=== PATIENT | female | born 1975 | race Caucasian/White ===

== ENCOUNTER 2018-05-14 07:00 | Day surgery (SDC) | payer BC ==
[~2018-05-14] VITALS: Ht 154.9 cm; Wt 79.4 kg
--- NOTE | ~2018-05-14 | OR ---
[facility] [address], [place] [address] Draft DATE OF OPERATION: 05/14/2018 SURGEON: Aaron Limon MD PREOPERATIVE DIAGNOSIS: Rotator cuff tear, right shoulder with impingement. POSTOPERATIVE DIAGNOSIS: Partial thickness rotator cuff tear, right shoulder with impingement and AC joint arthritis. PROCEDURE PERFORMED: Right shoulder arthroscopy with subacromial decompression, debridement of a partial-thickness rotator cuff tear, and arthroscopic Enrique procedure. ANESTHESIA: General. SPECIMENS AND COMPLICATIONS: There were no specimens or complications. BLOOD LOSS: Minimal. WHAT WAS DONE: The patient was taken to the operating room. After anesthesia was induced and airway secured, the patient was positioned, prepped and draped in a routine sterile fashion. The bony topography was outlined with a skin marking pen and the arthroscope was inserted through the standard posterior portal. Diagnostic arthroscopy of the shoulder joint revealed a pretty unremarkable glenoid, pretty unremarkable labrum, pretty unremarkable humeral head. Biceps tendon and biceps anchor were unremarkable. There was quite a bit of fraying on the articular side of the supraspinatus. We therefore created an anterior portal using a switching stick technique and introduced the VAPR. We debrided the rotator cuff in the area of the supraspinatus and we were unable to discover any areas of full-thickness tearing. We therefore drained the shoulder joint, repositioned the arthroscope into the subacromial space and made an axillary lateral portal, through which the VAPR was introduced. A subacromial bursectomy was accomplished and this gave us excellent visualization of the bursal side of the rotator cuff and again we could not see any full-thickness tears. We therefore used the VAPR to remove the soft tissue of the undersurface of the acromion, which had along anterior PATIENT NAME: RIVER KELLER OPERATIVE REPORT DATE OF : 77 REPORT #: [id number] PHYSICIAN: AARON LIMON MD PCP: CALOS CAO DO REPORT IS CONFIDENTIAL AND NOT TO BE RELEASED WITHOUT AUTHORIZATION [facility] [address], [place] [address] Draft hook in the front. We introduced a 4 mm barrel bur and did a generous subacromial decompression. We then proceeded medially and co-plane the undersurface of the distal clavicle with the level of the subacromial resection. We then redirected the anterior portal into the AC joint and again used the bur to remove about 9 mm of the distal clavicle. This appeared to give us a complete decompression of the supraspinatus and again no defect could be seen on the articular side. The subacromial space was irrigated and drained. The portals were closed and sterile dressings applied. She was placed in a sling, awakened, and taken to the recovery room where she arrived in stable condition. Counts were correct and antibiotic protocols were followed. MD STAN Cornejo/MODL /[id number] Copies: ~ PATIENT NAME: RIVER KELLER OPERATIVE REPORT DATE OF : 77 REPORT #: [id number] PHYSICIAN: AARON LIMON MD PCP: CALOS CAO DO REPORT IS CONFIDENTIAL AND NOT TO BE RELEASED WITHOUT AUTHORIZATION
[~2018-05-14 07:00] MED LIST: CYMBALTA60 MG PO; FARXIGA10 MG PO; GLUCOPHAGE1000 MG PO; LOSARTAN POTASS25 MG PO; PRILOSEC OTC20 MG PO; TENORMIN50 MG PO; VITAMIN D50000 UNI1 PO
--- NOTE | 2018-05-14 12:25 | NUR ---
05/14/18 1225 Kassandra Carnes 1218 PATIENT ARRIVES TO PACU AWAKE, BUT DROWSY. C/O RIGHT SHOULDER PAIN, STATES SHE FEELS LIKE NUMBING MEDS AREN'T WORKING. RESP EVEN AND UNLABORED, MASK AT 6 LITERS. 1224 JANETTE CAREER SERVICES DIRECTOR WITH US AT BEDSIDE TO REDO BLOCK.
--- NOTE | 2018-05-14 13:21 | NUR ---
HOB ELEVATED. PATIENT COUGHS AND REPORTS "THAT FEELS BETTER". JELLO, SODA AND WATER GIVEN. SPOUSE @ BS. CALL LIGHT W/IN REACH.
--- NOTE | 2018-05-14 13:30 | NUR ---
IN TO CHECK ON PT, PT AWAKE WATCHING TV. PT TOLERATED JELLO AND WATER WELL.NO FURTHER NEEDS AT THIS TIME. CALL LIGHT IN REACH.
--- NOTE | 2018-05-14 14:31 | NUR ---
PT SITTING UP IN BED, AT . SHE IS ALERT, ORIENTED AND LOOKING FORWARD TO GETTING SURGERY OVER. FEW QUESTIONS, THANKED ME FOR COMING IN. I EXTENDED A BLESSING, WILL FOLLOW NEEDED
--- NOTE | 2018-05-14 14:46 | NUR ---
LE 1400 IN TO CHECK ON PT, PT DOING WELL. PT ASSISTED UP TO BATHROOM, TOLERATED WELL. PT RATES PAIN 3/10. PT DENIES NAUSEA. PT STATES SHE IS READY TO GO HOME. IV DC'D. PT DRESSED WITH ASSIST FROM . PT WHEELED OUT TO WAITING CAR.
== END 2018-05-14 14:15 | disposition home or self-care (01) ==
LOC: OPS 07:00 → DS 07:00 → OPS 09:00
PROVIDERS: Orthopaedic Surgery
PROC: 0PB94ZZ Excision of Right Clavicle, Percutaneous Endoscopic Approach (ICD-10-PCS; 2018-05-14)
PROC: 0RNJ4ZZ Release Right Shoulder Joint, Percutaneous Endoscopic Approach (ICD-10-PCS; principal; 2018-05-14 09:00)
DX: M75.101 Unspecified rotator cuff tear or rupture of right shoulder, not specified as traumatic (principal); M75.41 Impingement syndrome of right shoulder; M19.011 Primary osteoarthritis, right shoulder; E11.9 Type 2 diabetes mellitus without complications; K21.9 Gastro-esophageal reflux disease without esophagitis; I10 Essential (primary) hypertension; F32.9 Major depressive disorder, single episode, unspecified; Z88.5 Allergy status to narcotic agent; Z91.041 Radiographic dye allergy status; Z79.899 Other long term (current) drug therapy; Z79.84 Long term (current) use of oral hypoglycemic drugs; Z87.891 Personal history of nicotine dependence
CPT/HCPCS: 01630; 64415; 76942; J0131; J0330; J0690; J1100; J1885; J2250; J2405; J2704; J2765; J3010; J7120

== ENCOUNTER 2019-03-16 20:51 | Observation (INO) | payer BC ==
[~2019-03-16] VITALS: Ht 154.9 cm; Wt 78.7 kg
--- NOTE | ~2019-03-16 | EKG ---
[facility] [address] [place], [place] [address] Draft EK completed, results pending confirmation PATIENT NAME: MILI KELLERBONIFACIO ALCANTARE Electrocardiogram DATE OF : 77 PHYSICIAN: PRELIMINARY REPORT #: [id number] REPORT IS CONFIDENTIAL AND NOT TO BE RELEASED WITHOUT AUTHORIZATION
--- OUTSIDE RECORDS SUMMARY | ~2019-03-16 | XMS | Encounter Summary ---
Demographics + + + | Address | [address] | | | [place] [address] | + + + | Home Phone | | + + + | Preferred Language | Unknown | + + + | Marital Status | | + + + | Judaism Affiliation | Unknown | + + + | Race | Unknown | + + + | Ethnic Group | Unknown | + + + Author + + + | Author | [facility] | | | and [place] | + + + | Organization | [facility] | | | and [place] | + + + | Address | Unknown | + + + | Phone | Unavailable | + + + Support + + +---------+ + | Name | Relationship | Address | Phone | + + +---------+ + | Specner Reed | ECON | Unknown | | + + +---------+ + Care Team Providers + +------+ + | Care Body Masker Name | Role | Phone | + +------+ + | Misha Atkinson DO | PCP | | + +------+ + Reason for Visit + + + | Reason | Comments | + + + | Medication Refill | | + + + Encounter Details +--------+--------+ + + + | Date | Type | Department | Care Team | Description | +--------+--------+ + + + | 08/19/ | Refill | [facility] | Misha Atkinson | Medication Refill | | 2019 | | [facility] | E, DO [address] | | | | | [facility] [address] | [place], [place] | | | | | [address] [place], | [address] | | | | | [place] [address] | [phone] | | | | | [phone] | | | +--------+--------+ + + + Social History + + + +--------+------+ | Tobacco Use | Types | Packs/Day | Years | Date | | | | | Used | | + + + +--------+------+ | Current Every Day | Cigarettes | 1 | | | | Smoker | | | | | + + + +--------+------+ + +---+---+---+ | Smokeless Tobacco: | | | | | Never Used | | | | + +---+---+---+ + + +---------+ + | Alcohol Use | Drinks/Week | oz/Week | Comments | + + +---------+ + | Yes | 12 Cans of beer | 12.0 | | + + +---------+ + + + + | Sex Assigned at | Date Recorded | | | | + + + | Not on file | | + + + + + + + | Job Start Date | Occupation | Industry | + + + + | Not on file | Not on file | Not on file | + + + + + + + + | Travel History | Travel Start | Travel End | + + + + + + | No recent travel history available. | + + documented as of this encounter Plan of Treatment Not on filedocumented as of this encounter Visit Diagnoses Not on filedocumented in this encounter"
--- OUTSIDE RECORDS SUMMARY | ~2019-03-16 | XMS | Encounter Summary ---
Demographics + + + | Address | [address] | | | [place] [address] | + + + | Home Phone | | + + + | Preferred Language | Unknown | + + + | Marital Status | | + + + | Worship Affiliation | Unknown | + + + | Race | Unknown | + + + | Ethnic Group | Unknown | + + + Author + + + | Author | [facility] | | | and [place] | + + + | Organization | [facility] | | | and [place] | + + + | Address | Unknown | + + + | Phone | Unavailable | + + + Support + + +---------+ + | Name | Relationship | Address | Phone | + + +---------+ + | Spencer Reed | ECON | Unknown | | + + +---------+ + Care Team Providers + +------+ + | Care Underground Distribution Engineer Name | Role | Phone | + +------+ + | Misha Atkinson DO | PCP | | + +------+ + Encounter Details +--------+ + + + + | Date | Type | Department | Care Team | Description | +--------+ + + + + | 02/27/ | Orders Only | [facility] | Misha Atkinson | Type 2 diabetes | | 2019 | | [facility] | E, DO [address] | mellitus without | | | | [facility] [address] | [place] | complication, | | | | [address] [place], | [address] | without long-term | | | | [place] [address] | [phone] | current use of | | | | [phone] | | insulin (HCC) | | | | | | (Primary Dx) | +--------+ + + + + Social History + + [...] as of this encounter Plan of Treatment + +------+--------+ + + | Name | Type | Priori | Associated Diagnoses | Order Schedule | | | | ty | | | + +------+--------+ + + | Hemoglobin A1C | Lab | Routin | Type 2 diabetes | 1 Occurrences | | | | e | mellitus without | starting 02/27/2019 | | | | | complication, | until 02/28/2020 | | | | | without long-term | | | | | | current use of | | | | | | insulin (HCC) | | + +------+--------+ + + | Lipid Panel | Lab | Routin | Type 2 diabetes | 1 Occurrences | | | | e | mellitus without | starting 02/27/2019 | | | | | complication, | until 02/28/2020 | | | | | without long-term | | | | | | current use of | | | | | | insulin (HCC) | | + +------+--------+ + + | Comprehensive | Lab | Routin | Type 2 diabetes | 1 Occurrences | | Metabolic Panel | | e | mellitus without | starting 02/27/2019 | | | | | complication, | until 02/28/2020 | | | | | without long-term | | | | | | current use of | | | | | | insulin (HCC) | | + +------+--------+ + + | Microalbumin/Creatin | Lab | Routin | Type 2 diabetes | 1 Occurrences | | ine Ratio, Urine | | e | mellitus without | starting 02/27/2019 | | | | | complication, | until 02/28/2020 | | | | | without long-term | | | | | | current use of | | | | | | insulin (HCC) | | + +------+--------+ + + documented as of this encounter Visit Diagnoses + + | Diagnosis | + + | Type 2 diabetes mellitus without complication, without long-term current use of | | insulin (HCC) - Primary | + + documented in this encounter"
--- OUTSIDE RECORDS SUMMARY | ~2019-03-16 | XMS | Encounter Summary ---
Demographics + + + | Address | [address] | | | [place] [address] | + + + | Home Phone | | + + + | Preferred Language | Unknown | + + + | Marital Status | | + + + | Restoration Affiliation | Unknown | + + + | Race | Unknown | + + + | Ethnic Group | Unknown | + + + Author + + + | Author | [facility] | | | and [place] | + + + | Organization | [facility] | | | and [place] [...] Team Providers + +------+ + | Care Meat Cutting Block Repairer Name | Role | Phone | + +------+ + | Misha Atkinson DO | PCP | | + +------+ + Reason for Visit + + + | Reason | Comments | + + + | Establish Care | Re-establish care, go over labs and discuss rash on bilateral | | | elbows and wrists | + + + Encounter Details +--------+---------+ + + + | Date | Type | Department | Care Team | Description | +--------+---------+ + + + | 04/11/ | Office | [facility] | Misha Atkinson | Uncomplicated | | 2019 | Visit | [facility] | E, DO [address] | alcohol dependence | | | | MED[facility] [address] | [place], [place] | (HCC) (Primary Dx); | | | | [address] [place], | [address] | Controlled type 2 | | | | [place] [address] | [phone] | diabetes mellitus | | | | [phone] | | with complication, | | | | | | without long-term | | | | | | current use of | | | | | | insulin (HCC); | | | | | | Essential | | | | | | hypertension; | | | | | | Vitamin D | | | | | | deficiency; | | | | | | Cigarette nicotine | | | | | | dependence without | | | | | | complication; | | | | | | Dermatitis; Need for | | | | | | Tdap vaccination; | | | | | | Breast cancer | | | | | | screening; | | | | | | Leukocytosis, | | | | | | unspecified type | +--------+---------+ + + + Social History + + [...] | | | + +---+---+---+ + + | Tobacco Cessation: Ready to Quit: Yes; Counseling Given: Yes | + + + + +---------+ + | Alcohol Use [...] + + documented as of this encounter Last Filed Vital Signs + + + + + | Vital Sign | Reading | Time Taken | Comments | + + + + + | Blood Pressure | 178/102 | 04/11/2018 3:31 PM | | | | | PST | | + + + + + | Pulse | 100 | 04/11/2018 3:31 PM | | | | | PST | | + + + + + | Temperature | 36.8 C (98.2 F) | 04/11/2018 3:31 PM | | | | | PST | | + + + + + | Respiratory Rate | 19 | 04/11/2018 3:31 PM | | | | | PST | | + + + + + | Oxygen Saturation | 98% | 04/11/2018 3:31 PM | | | | | PST | | + + + + + | Inhaled Oxygen | - | - | | | Concentration | | | | + + + + + | Weight | 78.7 kg (173 lb 9.6 | 04/11/2018 3:31 PM | | | | oz) | PST | | + + + + + | Height | 155.7 cm (5' 1.3") | 04/11/2018 3:31 PM | | | | | PST | | + + + + + | Body Mass Index | 32.48 | 04/11/2018 3:31 PM | | | | | PST | | + + + + + documented in this encounter Patient Instructions Patient Instructions Susan Khan - 04/11/2018 3:30 PM PST-Continue to cut Carbohydrates -Goal for A1C is 6.0 -Take Vitamin D3 2000 I/U daily along with -Take Ergocalciferol 60199 Units daily -Start Losartan 50 mg daily -Take Fish Oil 2000 mg daily -Order for Mammogram, call [facility] to schedule appointment -Schedule appointment with GERIATRICIAN for PAP -Repeat Blood work in June 2018 - CBC -Apply Hydrocortisone cream to elbows, do not itch, use ice packs for relief of itchElectro nically signed by Susan Khan at 04/11/2018 4:23 PM PST documented in this encounter Progress Notes Misha Atkinson DO - 04/11/2018 3:30 PM PST Patient ID: Chhaya Reed is a 43 y.o. year old female Chief Complaint: Chief Complaint Patient presents with Establish Care Re-establish care, go over labs and discuss rash on bilateral elbows and wrists Assessment Uncomplicated alcohol dependence (HCC) (Primary) Controlled type 2 diabetes mellitus with complication, without long-term current use of ins ulin (HCC) - MetFORMIN HCl; Take 1 tablet by mouth 2 times daily (with breakfast & dinner). Dispe nse: 60 tablet; Refill: 1 Essential hypertension - Losartan Potassium; Take 1 tablet by mouth Daily. Dispense: 30 tablet; Refill: 1 - Atenolol; Take 1 tablet by mouth Daily. Dispense: 30 tablet; Refill: 1 Vitamin D deficiency - Ergocalciferol; Take 1 capsule by mouth every 14 days. Dispense: 8 capsule; Refill: 0 Cigarette nicotine dependence without complication Dermatitis Need for Tdap vaccination - Tdap vaccine greater than or equal to 7yo IM Breast cancer screening - ALEN Tomosynthesis Screening Bilateral; Future; Expected date: 04/11/2018 Leukocytosis, unspecified type - CBC with Differential; Future; Expected date: 04/11/2018 Other orders - DULoxetine HCl; Take 1 capsule by mouth Daily. Dispense: 30 capsule; Refill: 1 - Dapagliflozin Propanediol; Take 1 tablet by mouth every morning. Dispense: 30 tablet ; Refill: 1 Plan -Continue to cut Carbohydrates -Goal for A1C is 6.0 -Take Vitamin D3 2000 I/U daily along with -Take Ergocalciferol 20519 Units daily -Start Losartan 50 mg daily -Take Fish Oil 2000 mg daily -Order for Mammogram, call [facility] to schedule appointment -Schedule appointment with GERIATRICIAN for PAP -Repeat Blood work in June 2018 - CBC -Apply Hydrocortisone cream to elbows, do not itch, use ice packs for relief of itch 60 minute visit with > 50% time spent in counseling regarding alcohol dependence, diabetes, hypertension, nicotine dependence, dermatitis, and leukocytosis. Subjective: SHELLY Shaver presents to the clinic today to re-establish care with me from [facility] kassandra, and discuss rash both elbows and wrist. She is still drinking alcohol every other night, she switched from drinking beers to truly. She has a rash, bumpy, itchy and weepy on her elbows and wrists. Reviewed recent blood work with her. She is not taking the Vitamin D. She has no concerns with her feet. She is scheduled for her eye exam on 04/18/2018. She is taking Atenolol 50 mg. She has a Mirena IUD placed, and her has had a vasect rosa. Current Outpatient Prescriptions Medication Sig Dispense Refill atenolol (TENORMIN) 50 mg tablet Take 1 tablet by mouth Daily. 30 tablet 0 dapagliflozin (FARXIGA) 10 mg tablet Take 10 mg by mouth every morning. DULoxetine (CYMBALTA) [address] capsule Take 1 capsule by mouth Daily. 30 capsule 1 ibuprofen (ADVIL, MOTRIN) 200 mg tablet Take 200 mg by mouth every 6 hours as needed fo r Pain. Lancets MISC by Does not apply route. levonorgestrel (MIRENA, 52 MG,) 20 MCG/24HR IUD 1 Device by Intrauterine route once. metFORMIN (GLUCOPHAGE) 1000 MG tablet Take 1,000 mg by mouth 2 times daily (with breakf ast & dinner). omeprazole (PRILOSEC) 20 mg capsule Take 20 mg by mouth every morning (before breakfast ). No current facility-administered medications for this visit. Patient Active Problem List Diagnosis Nicotine dependence IBS (irritable bowel syndrome) Diabetes mellitus type 2, controlled, with complications Depressive disorder Anxiety Alcohol dependence Vitamin D deficiency Essential hypertension Family History Problem Relation Age of Onset Diabetes, NIDDM Father With right below knee amputation Past Surgical History: Procedure Laterality Date APPENDECTOMY BLADDER SUSPENSION CHOLECYSTECTOMY MOHS SURGERY SKIN CANCER EXCISION Social History Social History Marital status: Spouse name: N/A Number of children: N/A Years of education: N/A Occupational History Not on file. Social History Main Topics Smoking status: Current Every Day Smoker Packs/day: 1.00 Types: Cigarettes Smokeless tobacco: Never Used Alcohol use 7.2 oz/week 12 Cans of beer per week Drug use: No Sexual activity: Yes Partners: Male control/ protection: IUD Other Topics Concern Not on file Social History Narrative No narrative on file Allergies Allergen Reactions Morphine Rash Review of Systems Constitutional: Negative for fatigue and fever. Respiratory: Negative for cough, chest tightness, shortness of breath and wheezing. Cardiovascular: Negative for chest pain and palpitations. Gastrointestinal: Negative for abdominal pain, nausea and vomiting. Musculoskeletal: Negative for gait problem and myalgias. Skin: Positive for rash (on both elbows and wrists). Neurological: Negative for dizziness, syncope and headaches. Psychiatric/Behavioral: The patient is not nervous/anxious. Objective: Vitals: BP (!) 178/102 | Pulse 100 | Temp 36.8 C (98.2 F) (Oral) | Resp 19 | Ht 1.557 m (5' 1.3") | Wt 78.7 kg (173 lb 9.6 oz) | SpO2 98% | ? No | BMI 32.48 kg/m Physical Exam Constitutional: She appears well-developed and well-nourished. HENT: Head: Atraumatic. Eyes: Pupils are equal, round, and reactive to light. EOM are normal. Cardiovascular: Normal rate, regular rhythm and normal heart sounds. Pulmonary/Chest: Effort normal and breath sounds normal. Neurological: She is alert. Skin: Macular, red, rash on both elbows and wrists. Psychiatric: She has a normal mood and affect. Entered by Susan Khan, acting as scribe for Dr. Demetrio DO. The documentation recorded by the scribe accurately reflects the service I personally perfo rmed and the decisions made by me. Dr. Misha Atkinson DO. 04/11/2018 16:32 Heidi Moser CC CMA - 04/11/2018 3:30 PM Selwyn Reed pres ents today with Chief Complaint of: Re-establish care, go over labs and discuss rash on lane ateral elbows and wrists. Current medications verified with her at time of visit. Pt currently shows no s/s of distress, shortness of breath. Vital signs: BP (!) 178/102 | Pulse 100 | Temp 36.8 C (98.2 F) (Oral) | Resp 19 | H t 1.557 m (5' 1.3") | Wt 78.7 kg (173 lb 9.6 oz) | SpO2 98% | ? No | BMI 32 .48 kg/m Labs Obtained per protocol: None. Verbal Report given to: Misha Atkinson DO. CARLOS Howard CMA After obtaining consent, and per orders of Dr. Misha Atkinson, injection of TDAP given by Heidi Carvajal. Site: RIGHT Deltoid. Patient tolerated well and ambulated out of clinic wit h out assistance. CARLOS Howard CMA documented in this encounter Plan of Treatment + +---------+--------+ + + | Name | Type | Priori | Associated Diagnoses | Order Schedule | | | | ty | | | + +---------+--------+ + + | ALEN Tomosynthesis | Imaging | Routin | Breast cancer | Expected: | | Screening Bilateral | | e | screening | 04/11/2018, Expires: | | | | | | 06/10/2019 | + +---------+--------+ + + | CBC with | Lab | Routin | Leukocytosis, | Expected: | | Differential | | e | unspecified type | 06/10/2018, Expires: | | | | | | 04/11/2019 | + +---------+--------+ + + documented as of this encounter Procedures + +--------+ + + + | Procedure Name | Priori | Date/Time | Associated Diagnosis | Comments | | | ty | | | | + +--------+ + + + | EXTERNAL LAB: | Routin | 03/22/2018 | | Results for this | | MICROALBUMIN, URINE | e | | | procedure are in the | | | | | | results section. | + +--------+ + + + | EXTERNAL LAB: | Routin | 03/22/2018 | | Results for this | | HEMOGLOBIN A1C | e | | | procedure are in the | | | | | | results section. | + +--------+ + + + documented in this encounter Results External Lab: Microalbumin, Urine (03/22/2018) + +-------+ + + + | Component | Value | Ref Range | Performed | Pathologist | | | | | At | Signature | + +-------+ + + + | Microalbumi | 0.7 | | | | | n, Urine, | | | | | | External | | | | | + +-------+ + + + + + | Specimen | + + | Blood | + + External Lab: Hemoglobin A1c (03/22/2018) + +-------+ + + + | Component | Value | Ref Range | Performed | Pathologist | | | | | At | Signature | + +-------+ + + + | Hemoglobin | 6.6 | % | | | | A1c, | | | | | | external | | | | | + +-------+ + + + + + | Specimen | + + | Blood | + + documented in this encounter Visit Diagnoses + + | Diagnosis | + + | Uncomplicated alcohol dependence (HCC) - Primary Other and unspecified alcohol | | dependence, unspecified drinking behavior | + + | Controlled type 2 diabetes mellitus with complication, without long-term current use | | of insulin (HCC) | + + | Essential hypertension Unspecified essential hypertension | + + | Vitamin D deficiency Unspecified vitamin D deficiency | + + | Cigarette nicotine dependence without complication Tobacco use disorder | + + | Dermatitis Contact dermatitis and other eczema, due to unspecified cause | + + | Need for Tdap vaccination Need for prophylactic vaccination with combined | | lbqvxncczr-nhuaiaf-lizhbrcay (DTP) vaccine | + + | Breast cancer screening Breast screening, unspecified | + + | Leukocytosis, unspecified type | + + documented in this encounter
--- OUTSIDE RECORDS SUMMARY | ~2019-03-16 | XMS | Encounter Summary ---
Demographics + + + | Address | [address] | | | [place] [address] | + + + | Home Phone | | + + + | Preferred Language | Unknown | + + + | Marital Status | | + + + | Temple Affiliation | Unknown | + + + | Race | Unknown | + + + | Ethnic Group | Unknown | + + + Author + + + | Author | [facility] | | | and [place] | + + + | Organization | [facility] | | | and [place] | [...] Team Providers + +------+ + | Care Conference Manager Name | Role | Phone | + [...] | | [address] [place], | [address] | without long-term | | | | [place] [address] | [phone] | current use of | | | | [phone] | | insulin (HCC) | | | [...]
--- OUTSIDE RECORDS SUMMARY | ~2019-03-16 | XMS | Encounter Summary ---
Demographics + + + | Address | [address] | | | [place] [address] | + + + | Home Phone | | + + + | Preferred Language | Unknown | + + + | Marital Status | | + + + | Bahai Affiliation | Unknown | + + + | Race | Unknown | + + + | Ethnic Group | Unknown | + + + Author + + + | Author | [facility] | | | and [place] | + + + | Organization | [facility] | | | and [...] Team Providers + +------+ + | Care Apartment Locator Name | Role | Phone | + [...] Description | +--------+--------+ + + + | 07/15/ | Refill | [facility] | Misha Atkinson | Medication Refill | | 2018 | | [facility] | E, DO [address] | | | | | MED[facility] [address] | [place], [place] | | | | | [address] [place], | [address] | | | | | [place] [address] | [phone] | | | | | [phone] | | | +--------+--------+ + + + [...]
--- OUTSIDE RECORDS SUMMARY | ~2019-03-16 | XMS | Encounter Summary ---
Demographics + + + | Address | [address] | | | [place] [address] | + + + | Home Phone | | + + + | Preferred Language | Unknown | + + + | Marital Status | | + + + | Mosque Affiliation | Unknown | + + + | Race | Unknown | + + + | Ethnic Group | Unknown | + + + Author + + + | Author | [facility] | | | and [place] | + + + | Organization | [facility] | | | and [place] | [...] Team Providers + +------+ + | Care Metal Numerical Tool Programmer Name | Role | Phone | + +------+ + | Misha Atkinson DO | PCP | | + +------+ + Reason for Visit + + + | Reason | Comments | + + + | Results, Imaging | MGM | + + + Encounter Details +--------+ + + + + | Date | Type | Department | Care Team | Description | +--------+ + + + + | 07/01/ | Telephone | [place] | Cira Hoover, | Results, Imaging | | 2019 | | [facility] | CC TANK BUILDER | ([facility]) | | | | MEDICAL [facility] [address] | | | | | | [address] [place], | | | | | | [place] [address] | | | | | | [phone] | | | +--------+ + + + + Social [...]
--- OUTSIDE RECORDS SUMMARY | ~2019-03-16 | XMS | Encounter Summary ---
Demographics + + + | Address | [address] | | | [place] [address] | + + + | Home Phone | | + + + | Preferred Language | Unknown | + + + | Marital Status | | + + + | Rastafarian Affiliation | Unknown | + + + | Race | Unknown | + + + | Ethnic Group | Unknown | + + + Author + + + | Author | [facility] | | | and [place] | + + + | Organization | [facility] | | | and [place] | + + + | Address | Unknown | + + + | Phone | Unavailable | + + + Support + + +---------+ + | Name | Relationship | Address | Phone | + + +---------+ + | Spencre Reed | ECON | Unknown | | + + +---------+ + Care Team Providers + +------+ + | Care Signal Tower Director Name | Role | Phone | + +------+ + PCP | Unavailable | + +------+ + Reason for Visit + + + | Reason | Comments | + + + | Medication Refill | | + + + Encounter Details +--------+--------+ + + + | Date | Type | Department | Care Team | Description | +--------+--------+ + + + | 02/12/ | Refill | [place] | Misha Atkinson | Medication Refill | | 2018 | | [facility] | E, DO [address] | | | | | MEDICAL CL[address] | [place], [place] | | | | | [address] [place], | [address] | | | | | [place] [address] | [phone] | | | | | [phone] | | | +--------+--------+ + + + Social History + +-------+ +--------+------+ | Tobacco Use | Types | Packs/Day | Years | Date | | | | | Used | | + +-------+ +--------+------+ | Never Assessed | | | | | + +-------+ +--------+------+ + + + | Sex Assigned at [...]
--- OUTSIDE RECORDS SUMMARY | ~2019-03-16 | XMS | Encounter Summary ---
Demographics + + + | Address | [address] | | | [place] [address] | + + + | Home Phone | | + + + | Preferred Language | Unknown | + + + | Marital Status | | + + + | Christianity Affiliation | Unknown | + + + | Race | Unknown | + + + | Ethnic Group | Unknown | + + + Author + + + | Author | [facility] | | | and [place] | + + + | Organization | [facility] | | | and [place] [...] Team Providers + +------+ + | Care Research Program Assistant Name | Role | Phone | + +------+ + | Misha Atkinson DO | PCP | | + +------+ + Reason for Visit + + + | Reason | Comments | + + + | Lab Results | | + + + Encounter Details +--------+ + + + + | Date | Type | Department | Care Team | Description | +--------+ + + + + | 05/09/ | Telephone | [place] | Misha Atkinson | Lab Results | | 2019 | | [facility] | E, DO [address] | | | | | MEDICAL CLIN[address] | [place], [place] | | | | | [address] [place], | [address] | | | | | [place] [address] | [phone] | | | | | [phone] | | | +--------+ + + + [...]
--- OUTSIDE RECORDS SUMMARY | ~2019-03-16 | XMS | Clinical Summary ---
Demographics + + + | Address | [address] | | | [place] [address] | + + + | Home Phone | | + + + | Preferred Language | Unknown | + + + | Marital Status | | + + + | Sabianist Affiliation | Unknown | + + + | Race | Unknown | + + + | Ethnic Group | Unknown | + + + Author + + + | Author | [facility] | | | and [place] | + + + | Organization | [facility] | | | and [place] [...] Team Providers + +------+ + | Care Hand Bindery Assembly Worker Name | Role | Phone | + +------+ + | Misha Atkinson DO | PCP | | + +------+ + Allergies + + + + + + | Active Allergy | Reactions | Severity | Noted | Comments | | | | | Date | | + + + + + + | Morphine | Rash | Low | 04/11/19 | | | | | | 19 | | + + + + + + Medications + + + +---------+------+------+-------+ | Medication | Sig | Dispensed | Refills | Star | End | Statu | | | | | | t | Date | s | | | | | | Date | | | + + + +---------+------+------+-------+ | ibuprofen (ADVIL, | Take 200 mg by mouth | | 0 | | | Activ | | MOTRIN) 200 mg | every 6 hours as | | | | | e | | tablet | needed for Pain. | | | | | | + + + +---------+------+------+-------+ | Lancjoss MISC | by Does not apply | | 0 | | | Activ | | | route. | | | | | e | + + + +---------+------+------+-------+ | levonorgestrel | 1 Device by | | 0 | | | Activ | | (MIRENA, 52 MG,) 20 | Intrauterine route | | | | | e | | MCG/24HR IUD | once. | | | | | | + + + +---------+------+------+-------+ | omeprazole | Take 20 mg by mouth | | 0 | | | Activ | | (PRILOSEC) 20 mg | every morning | | | | | e | | capsule | (before breakfast). | | | | | | + + + +---------+------+------+-------+ | ergocalciferol | Take 1 capsule by | 8 | 0 | 01/3 | | Activ | | (VITAMIN D2) [id number] | mouth every 14 days. | capsule | | 1/20 | | e | | units | | | | 19 | | | | capsuleIndications: | | | | | | | | Vitamin D deficiency | | | | | | | + + + +---------+------+------+-------+ | losartan (COZAAR) | Take 1 tablet by | 30 | 1 | 01/3 | | Activ | | 50 mg | mouth Daily. | tablet | | 1/20 | | e | | tabletIndications: | | | | 19 | | | | Essential | | | | | | | | hypertension | | | | | | | + + + +---------+------+------+-------+ | dapagliflozin | Take 1 tablet by | 30 | 1 | 01/3 | | Activ | | (FARXIGA) 10 mg | mouth every morning. | tablet | | 1/20 | | e | | tablet | | | | 19 | | | + + + +---------+------+------+-------+ | atenolol | TAKE 1 TABLET BY | 30 | 3 | 04/0 | | Activ | | (TENORMIN) 50 mg | MOUTH DAILY | tablet | | 3/20 | | e | | tablet | | | | 19 | | | + + + +---------+------+------+-------+ | atenolol | TAKE 1 TABLET BY | 90 | 0 | 04/0 | | Activ | | (TENORMIN) 50 mg | MOUTH DAILY | tablet | | 8/20 | | e | | tablet | | | | 19 | | | + + + +---------+------+------+-------+ | atenolol | TAKE 1 TABLET BY | 90 | 3 | 04/0 | | Activ | | (TENORMIN) 50 mg | MOUTH DAILY | tablet | | 9/20 | | e | | tablet | | | | 19 | | | + + + +---------+------+------+-------+ | DULoxetine | Take 1 capsule by | 90 | 3 | 06/1 | | Activ | | (CYMBALTA) [address] | mouth Daily. | capsule | | 0/20 | | e | | capsule | | | | 19 | | | + + + +---------+------+------+-------+ | metFORMIN | Take 1 tablet by | 180 | 3 | 06/1 | | Activ | | (GLUCOPHAGE) 1000 MG | mouth 2 times daily | tablet | | 0/20 | | e | | tablet | (with breakfast & | | | 19 | | | | | dinner). | | | | | | + + + +---------+------+------+-------+ | DULoxetine | Take 1 capsule by | 90 | 3 | 06/1 | | Activ | | (CYMBALTA) [address] | mouth Daily. | capsule | | 0/20 | | e | | capsule | | | | 19 | | | + + + +---------+------+------+-------+ Active Problems + + + | Problem | Noted Date | + + + | Vitamin D deficiency | 04/11/2018 | + + + | Essential hypertension | 04/11/2018 | + + + | Nicotine dependence | | + + + | IBS (irritable bowel syndrome) | | + + + | Diabetes mellitus type 2, controlled, with complications | | + + + | Depressive disorder | | + + + | Anxiety | | + + + | Alcohol dependence | | + + + Encounters +--------+ + + + + | Date | Type | Specialty | Care Team | Description | +--------+ + + + + | 02/27/ | Orders Only | Primary Care | Misha Atkinson | Type 2 diabetes | | 2018 | | | E, DO | mellitus without | | | | | | complication, | | | | | | without long-term | | | | | | current use of | | | | | | insulin (HCC) | | | | | | (Primary Dx) | +--------+ + + + + from Last 3 Months Immunizations + + + + | Name | Administration Dates | Next Due | + + + + | PHUC PF 18-64 | 12/10/2017 | | | YRS,QUAD INTRADERMAL | | | + + + + | TDAP, (ADOL/ADULT) | 04/11/2018 | | + + + + Family History + + +------+ + | Medical History | Relation | Name | Comments | + + +------+ + | Diabetes, NIDDM | Father | | With right below knee amputation | + + +------+ + + +------+--------+ + | Relation | Name | Status | Comments | + +------+--------+ + | Father | | | | + +------+--------+ + Social History + + + +--------+------+ [...] recent travel history available. | + + Last Filed Vital Signs + + + [...] | | + + + + + Plan of Treatment + + + + + | Health Maintenance | Due Date | Last Done | Comments | + + + + + | Vaccine: | | | | | Pneumococcal 19-64 | 2 | | | | (1 of 1 - PPSV23) | | | | + + + + + | Breast Cancer | | | | | Screening | 4 | | | + + + + + | Diabetic Foot Exam | | | | | | 4 | | | + + + + + | Cervical Cancer | | | | | Screening (Pap) | 6 | | | + + + + + | Statin Therapy | | | | | (optimal intensity) | 8 | | | + + + + + | Hemoglobin A1c | | 03/22/2018 | | | Screening | 9 | | | + + + + + | Vaccine: Influenza | | 12/10/2017 | | | (#1) | 9 | | | + + + + + | Primary Care | | 04/11/2018 | | | Outreach (Moderate | 0 | | | | Risk) | | | | + + + + + | Diabetic Eye Exam | | 04/18/2018 | | | | 1 | | | + + + + + | Vaccine: | | 04/11/2018 | | | Dtap/Tdap/Td (2 - | 9 | | | | Td) | | | | + + + + + Results Not on filefrom Last 3 Months Insurance +---------+--------+ +--------+ +---------+------+ | Payer | Benefi | Subscriber | Effect | Phone | Address | Type | | | t Plan | ID | kim | | | | | | / | | Dates | | | | | | Group | | | | | | +---------+--------+ +--------+ +---------+------+ | [place] | [id number] | 03/12/19 | [phone] | | [place] | | [place] | 4 | 18-Pre | 9 | | | | | | | sent | | | | +---------+--------+ +--------+ +---------+------+ + +--------+ +--------+ + + | Guarantor Name | Accoun | Relation to | Date | Phone | Billing Address | | | t Type | Patient | of | | | | | | | | | | + +--------+ +--------+ + + | Chhaya Reed | Person | Self | [birth year] | [address] | | | al/Fam | | 1975 | [phone] | [place] [address] | | | marium | | | 1 (Home) | | + +--------+ +--------+ + + Advance Directives + + + + + | Type | Date Recorded | Patient | Explanation | | | | [employer] | | + + + + + | Power of | | | | | Blow Torch Burner | | | | + + + + + | Advance | | | | | Directive | | | | + + + + +
--- OUTSIDE RECORDS SUMMARY | ~2019-03-16 | XMS | Encounter Summary ---
Demographics + + + | Address | [address] | | | [place] [address] | + + + | Home Phone | | + + + | Preferred Language | Unknown | + + + | Marital Status | | + + + | Confucianism Affiliation | Unknown | + + + | Race | Unknown | + + + | Ethnic Group | Unknown | + + + Author + + + | Author | [facility] | | | and [place] | + + + | Organization | [facility] [...] Team Providers + +------+ + | Care Emergency Medical Service Manager Name | Role | Phone | [...] | +--------+ + + + + | 04/25/ | Telephone | [place] | Cira Hoover, | Medication Refill | | 2018 | | [facility] | CC TRUSS PULLER HELPER | | | | | MEDICAL CLIN[address] | | | | | | [address] [place], | | | | | | [place] [address] | | | | | | [phone] | | | +--------+ + + + [...]
--- OUTSIDE RECORDS SUMMARY | ~2019-03-16 | XMS | Encounter Summary ---
Demographics + + + | Address | [address] | | | [place] [address] | + + + | Home Phone | | + + + | Preferred Language | Unknown | + + + | Marital Status | | + + + | Rastafari Affiliation | Unknown | + + + | Race | Unknown | + + + | Ethnic Group | Unknown | + + + Author + + + | Author | [facility] | | | and [place] | + + + | Organization | [facility] | | | and [...] Team Providers + +------+ + | Care Lean Leader Name | Role | Phone | + [...] Description | +--------+--------+ + + + | 08/17/ | Refill | [place] | Steph Mohamud, | Medication Refill | | 2019 | | [facility] | MEDICAL LABORATORY MANAGER [address] | | | | | MEDICAL CL[address] | [place] [address] | | | | | [address] [place], | [phone] | | | | | [place] [address] | | | | | | [phone] | | | +--------+--------+ + + + [...]
--- OUTSIDE RECORDS SUMMARY | ~2019-03-16 | XMS | Encounter Summary ---
Demographics + + + | Address | [address] | | | [place] [address] | + + + | Home Phone | | + + + | Preferred Language | Unknown | + + + | Marital Status | | + + + | Mu-Ism Affiliation | Unknown | + + + | Race | Unknown | + + + | Ethnic Group | Unknown | + + + Author + + + | Author | [facility] | | | and [place] | + + + | Organization | [facility] | | | and [place] [...] Team Providers + +------+ + | Care Sex Worker Or Escort Name | Role | Phone | + +------+ + PCP | Unavailable | + +------+ + Encounter Details +--------+ + + + + | Date | Type | Department | Care Team | Description | +--------+ + + + + | 06/25/ | [facility] | [facility] | | | | 1996 | Encounter | MED CTR GENERIC OP | | | | | | CONV DEPT [address] | | | | | | [place], | | | | | | [place] [address] | | | | | | [phone] | | | +--------+ + + + + Social History + +-------+ [...]
--- OUTSIDE RECORDS SUMMARY | ~2019-03-16 | XMS | Encounter Summary ---
Demographics + + + | Address | [address] | | | [place] [address] | + + + | Home Phone | | + + + | Preferred Language | Unknown | + + + | Marital Status | | + + + | Nondenominational Affiliation | Unknown | + + + | Race | Unknown | + + + | Ethnic Group | Unknown | + + + Author + + + | Author | [facility] | | | and [place] | + + + | Organization | [facility] | | | and [place] [...] Team Providers + +------+ + | Care Testing Engineer Name | Role | Phone | [...] | | [address] [place], | [address] | | | | | [place] [address] | [phone] | | | | | [phone] | | | +--------+ + + + [...]
--- OUTSIDE RECORDS SUMMARY | ~2019-03-16 | XMS | Encounter Summary ---
Demographics + + + | Address | [address] | | | [place] [address] | + + + | Home Phone | | + + + | Preferred Language | Unknown | + + + | Marital Status | | + + + | Nondenominational Affiliation | Unknown | + + + | Race | Unknown | + + + | Ethnic Group | Unknown | + + + Author + + + | Author | [facility] | | | and [place] | + + + | Organization | [facility] | | | and [place] [...] Team Providers + +------+ + | Care Substation Operator Name | Role | Phone | + +------+ + | Misha Atkinson DO | PCP | | + +------+ + Reason for Visit + + + | Reason | Comments | + + + | Medication Refill | Rx-Pt out of medication(matthew Atkinson pt from [place]) appt | | | sched on 04-11-18 | + + + Encounter Details +--------+--------+ + + + | Date | Type | Department | Care Team | Description | +--------+--------+ + + + | 03/27/ | Refill | [place] | Misha Atkinson | Medication Refill | | 2019 | | [facility] | E, DO [address] | (Rx-Pt out of | | | | MEDICAL CLIN[address] | [place], [place] | medication(prev | | | | [address] [place], | [address] | Demetrio pt from | | | | [place] [address] | [phone] | paul) appt | | | | [phone] | | sched on 04-11-18) | +--------+--------+ + + + Social History [...]
--- OUTSIDE RECORDS SUMMARY | ~2019-03-16 | XMS | Encounter Summary ---
Demographics + + + | Address | [address] | | | [place] [address] | + + + | Home Phone | | + + + | Preferred Language | Unknown | + + + | Marital Status | | + + + | Taoist Affiliation | Unknown | + + + | Race | Unknown | + + + | Ethnic Group | Unknown | + + + Author + + + | Author | [facility] | | | and [place] | + + + | Organization | [facility] | | | and [place] | [...] Team Providers + +------+ + | Care Director Of Customer Acquisition Name | Role | Phone | + [...] 08/17/ | Refill | [place] | Misha Atkinson | Medication Refill | | 2018 | | [facility] | E, DO [address] | | | | | MEDICAL CLIN[address] | [place], [place] | | | | | [address] [place], | [address] | | | | | [place] [address] | [phone] | | | | | [phone] | | | +--------+--------+ + + + [...]
--- OUTSIDE RECORDS SUMMARY | ~2019-03-16 | XMS | Encounter Summary ---
Demographics + + + | Address | [address] | | | [place] [address] | + + + | Home Phone | | + + + | Preferred Language | Unknown | + + + | Marital Status | | + + + | Muslim Affiliation | Unknown | + + + | Race | Unknown | + + + | Ethnic Group | Unknown | + + + Author + + + | Author | [facility] | | | and [place] | + + + | Organization | [facility] | | | and [place] | [...] Team Providers + +------+ + | Care Business Systems Administrator Name | Role | Phone | + [...] Medication Refill | | 2019 | | [facility] | E, DO [address] | | | | | MEDICAL CLIN[address] | [place], [place] | | | | | [address] [place], | [address] | | | | | [place] [address] | [phone] | | | | | [phone] | | | +--------+--------+ + + + [...]
--- OUTSIDE RECORDS SUMMARY | ~2019-03-16 | XMS | Encounter Summary ---
Demographics + + + | Address | [address] | | | [place] [address] | + + + | Home Phone | | + + + | Preferred Language | Unknown | + + + | Marital Status | | + + + | Baptism Affiliation | Unknown | + + + | Race | Unknown | + + + | Ethnic Group | Unknown | + + + Author + + + | Author | [facility] | | | and [place] | + + + | Organization | [facility] | | | and [...] Team Providers + +------+ + | Care Respiratory Tech Name | Role | Phone | + [...] Medication Refill | | 2018 | | [facility] | E, DO [address] | | | | | MEDICAL CLIN[address] | [place], [place] | | | | | [address] [place], | [address] | | | | | [place] [address] | [phone] | | | | | [phone] | | | +--------+--------+ + + + [...]
--- OUTSIDE RECORDS SUMMARY | ~2019-03-16 | XMS | Encounter Summary ---
Demographics + + + | Address | [address] | | | [place] [address] | + + + | Home Phone | | + + + | Preferred Language | Unknown | + + + | Marital Status | | + + + | Gnosticist Affiliation | Unknown | + + + | Race | Unknown | + + + | Ethnic Group | Unknown | + + + Author + + + | Author | [facility] | | | and [place] | + + + | Organization | [facility] | | | and [place] [...] Team Providers + +------+ + | Care Shackler Name | Role | Phone | + [...] Results, Imaging | | 2019 | | [facility] | CC SATELLITE DISH REPAIRER | ([facility]) | | | | MEDICAL CLIN[address] | | | | | | [address] [place], | | | | | | [place] [address] | | | | | | [phone] | | | +--------+ + + + [...]
--- OUTSIDE RECORDS SUMMARY | ~2019-03-16 | XMS | Encounter Summary ---
Demographics + + + | Address | [address] | | | [place] [address] | + + + | Home Phone | | + + + | Preferred Language | Unknown | + + + | Marital Status | | + + + | Zoroastrianism Affiliation | Unknown | + + + | Race | Unknown | + + + | Ethnic Group | Unknown | + + + Author + + + | Author | [facility] | | | and [place] | + + + | Organization | [facility] | | | and [place] [...] Team Providers + +------+ + | Care Automotive Brake Technician Name | Role | Phone | + +------+ + PCP | Unavailable | + +------+ + Reason for Visit + + + | Reason | Comments | + + + | Lab Order | | + + + Encounter Details +--------+ + + + + | Date | Type | Department | Care Team | Description | +--------+ + + + + | 02/18/ | Telephone | [place] | Misha Atkinson | Lab Order | | 2018 | | [facility] | E, DO [address] | | | | | MED[address] | [place], [place] | | | | | [address] [place], | [address] | | | | | [place] [address] | [phone] | | | | | [phone] | | | +--------+ + + + [...] | | + +------+--------+ + + | CBC with | Lab | Routin | Type 2 diabetes | Expected: | | Differential | | e | mellitus without | 02/19/2018, Expires: | | | | | complication, | 02/19/2019 | | | | | without long-term | | | | | | current use of | | | | | | insulin (HCC) | | + +------+--------+ + + | Comprehensive | Lab | Routin | Type 2 diabetes | Expected: | | Metabolic Panel | | e | mellitus without | 02/19/2018, Expires: | | | | | complication, | 02/19/2019 | | | | | without long-term | | | | | | current use of | | | | | | insulin (HCC) | | + +------+--------+ + + | Lipid Panel | Lab | Routin | Type 2 diabetes | Expected: | | | | e | mellitus without | 02/19/2018, Expires: | | | | | complication, | 02/19/2019 | | | | | without long-term | | | | | | current use of | | | | | | insulin (HCC) | | + +------+--------+ + + | TSH | Lab | Routin | Type 2 diabetes | Expected: | | | | e | mellitus without | 02/19/2018, Expires: | | | | | complication, | 02/19/2019 | | | | | without long-term | | | | | | current use of | | | | | | insulin (HCC) | | + +------+--------+ + + | Hemoglobin A1C | Lab | Routin | Type 2 diabetes | Expected: | | | | e | mellitus without | 02/19/2018, Expires: | | | | | complication, | 02/19/2019 | | | | | without long-term | | | | | | current use of | | | | | | insulin (HCC) | | + +------+--------+ + + | Microalbumin/Creatin | Lab | Routin | Type 2 diabetes | Expected: | | ine Ratio, Urine | | e | mellitus without | 02/19/2018, Expires: | | | | | complication, | 02/19/2019 | | | | | without long-term | | | | | | current use of | | | | | | insulin (HCC) | | + +------+--------+ + + | Vitamin D, | Lab | Routin | Vitamin D | Expected: | | Deficiency Screen | | e | deficiency | 02/19/2018, Expires: | | (25-Hydroxy) | | | | 02/19/2019 | + +------+--------+ + + documented as of this encounter Visit Diagnoses + + | Diagnosis | + + | Type 2 diabetes mellitus without complication, without long-term current use of | | insulin (HCC) - Primary | + + | Vitamin D deficiency Unspecified vitamin D deficiency | + + documented in this encounter"
--- OUTSIDE RECORDS SUMMARY | ~2019-03-16 | XMS | Encounter Summary ---
Demographics + + + | Address | [address] | | | [place] [address] | + + + | Home Phone [...] | Author | [facility] | | | and [place] | + + + | Organization | [facility] | | | and [place] [...] Team Providers + +------+ + | Care Blower Room Attendant Name | Role | Phone | + [...] | | [address] [place], | [address] | | | | | [place] [address] | [phone] | | | | | [phone] | | | +--------+--------+ + + + [...]
--- OUTSIDE RECORDS SUMMARY | ~2019-03-16 | XMS | Clinical Summary ---
Demographics + + + | Address | [address] | | | [place] [address] | + + + | Home Phone | | + + + | Preferred Language | Unknown | + + + | Marital Status | | + + + | Presybeterian Affiliation | Unknown | + + + | Race | Unknown | + + + | Ethnic Group | Unknown | + + + Author + + + | Author | [facility] | | | and [place] | + + + | Organization | [facility] | | | and [place] [...] Team Providers + +------+ + | Care Lacquer Mixer Name | Role | Phone | + [...] | | Activ | | (VITAMIN D2) [id number] | mouth every 14 days. | capsule [...] +---------+------+ | [place] | [id number] | 03/12/19 | [phone] | | PPO [...] | 1975 | [phone] | [place] [address] | | | marium | | | 1 (Home) | | + +--------+ +--------+ + + Advance Directives + + + + + | Type | Date Recorded | Patient | Explanation | | | | Head Well Puller | | + + + + + | Power of | | | | | Mosaic Tiler | | | | + + + + + | Advance | | | | | Directive | | | | + + + + +
--- OUTSIDE RECORDS SUMMARY | ~2019-03-16 | XMS | Encounter Summary ---
Demographics + + + | Address | [address] | | | [place] [address] | + + + | Home Phone | | + + + | Preferred Language | Unknown | + + + | Marital Status | | + + + | Scientologist Affiliation | Unknown | + + + | Race | Unknown | + + + | Ethnic Group | Unknown | + + + Author + + + | Author | [facility] | | | and [place] | + + + | Organization | [facility] | | | and [place] [...] Team Providers + +------+ + | Care Dba Manager Name | Role | Phone | + +------+ + | Misha Atkinson DO | PCP | | + +------+ + Encounter Details +--------+ + + + + | Date | Type | Department | Care Team | Description | +--------+ + + + + | 11/20/ | Abstract | [facility] | Misha Atkinson | | | 2019 | | [facility] | [place], [address] | | | | | MED[address] CLIN[address] | [place], [place] | | | | | [address] [place], | [address] | | | | | [place] [address] | [phone] | | | | | [phone] | | | +--------+ + + + [...]
--- OUTSIDE RECORDS SUMMARY | ~2019-03-16 | XMS | Encounter Summary ---
Demographics + + + | Address | [address] | | | [place] [address] | + + + | Home Phone | | + + + | Preferred Language | Unknown | + + + | Marital Status | | + + + | Jewish Affiliation | Unknown | + + + | Race | Unknown | + + + | Ethnic Group | Unknown | + + + Author + + + | Author | [facility] | | | and [place] | + + + | Organization | [facility] | | | and [place] | [...] Team Providers + +------+ + | Care Labor/Excavator Name | Role | Phone | + [...] Medication Refill | | 2018 | | [facility] | E, DO [address] | | | | | MEDICAL CLIN[address] | [place], [place] | | | | | [address] [place], | [address] | | | | | [place] [address] | [phone] | | | | | [phone] | | | +--------+--------+ + + + [...]
--- OUTSIDE RECORDS SUMMARY | ~2019-03-16 | XMS | Encounter Summary ---
Demographics + + + | Address | [address] | | | [place] [address] | + + + | Home Phone | | + + + | Preferred Language | Unknown | + + + | Marital Status | | + + + | Roman Catholic Affiliation | Unknown | + + + | Race | Unknown | + + + | Ethnic Group | Unknown | + + + Author + + + | Author | [facility] | | | and [place] | + + + | Organization | [facility] | [...] Team Providers + +------+ + | Care Locum Tenens Psychiatrist Name | Role | Phone | + [...] Description | +--------+--------+ + + + | 06/17/ | Refill | [facility] | Paul, | Medication Refill | | 2019 | | [facility] | [facility] [address] | | | | | MEDICAL CLIN[address] | [address] [place] | | | | | [address] [place], | [place] [address] | | | | | [place] [address] | [phone] | | | | | [phone] | | | +--------+--------+ + + + [...]
--- OUTSIDE RECORDS SUMMARY | ~2019-03-16 | XMS | Encounter Summary ---
Demographics + + + | Address | [address] | | | [place] [address] | + + + | Home Phone [...] | Author | [facility] | | | and [place] | + + + | Organization | [facility] | | | and [place] [...] Team Providers + +------+ + | Care Maintenance Person Name | Role | Phone | + +------+ + | Misha Atkinson DO | PCP | | + +------+ + Reason for Visit + + + | Reason | Comments | + + + | Medication Refill | Rx-Pt out of medication(matthew Atkinson pt from [place]) appt | | | sched on 04-11-18 | + + + Encounter Details +--------+--------+ + + + | Date | Type | Department | Care Team | Description | +--------+--------+ + + + | 03/27/ | Refill | [facility] | Misha Atkinson | Medication Refill | | 2019 | | [facility] | E, DO [address] | (Rx-Pt out of | | | | MEDICAL CLIN[address] | [place], [place] | medication(prev | | | | [address] [place], | [address] | Demetrio pt from | | | | [place] [address] | [phone] | paul) appt | | | | [phone] | | sched on 04-11-18) | +--------+--------+ [...]
--- OUTSIDE RECORDS SUMMARY | ~2019-03-16 | XMS | Encounter Summary ---
Demographics + + + | Address | [address] | | | [place] [address] | + + + | Home Phone | | + + + | Preferred Language | Unknown | + + + | Marital Status | | + + + | Islam Affiliation | Unknown | + + + | Race | Unknown | + + + | Ethnic Group | Unknown | + + + Author + + + | Author | [facility] | | | and [place] | + + + | Organization | [facility] | | | and [place] [...] Team Providers + +------+ + | Care Mill Hand Name | Role | Phone | + [...] Medication Refill | | 2019 | | [facility] | CROZE CUTTER [address] | | | | | MEDICAL CLIN[address] | [place] [address] | | | | | [address] [place], | [phone] | | | | | [place] [address] | | | | | | [phone] | | | +--------+--------+ + + + [...]
--- OUTSIDE RECORDS SUMMARY | ~2019-03-16 | XMS | Encounter Summary ---
Demographics + + + | Address | [address] | | | [place] [address] | + + + | Home Phone | | + + + | Preferred Language | Unknown | + + + | Marital Status | | + + + | Yarsani Affiliation | Unknown | + + + | Race | Unknown | + + + | Ethnic Group | Unknown | + + + Author + + + | Author | [facility] | | | and [place] | + + + | Organization | [facility] | | | and [place] | [...] Team Providers + +------+ + | Care Well Service Derrick Worker Name | Role | Phone | [...] | | [address] [place], | [address] | without long-term | | | | [place] [address] | [phone] | current use of | | | | [phone] | | insulin (HCC) | | | [...]
--- OUTSIDE RECORDS SUMMARY | ~2019-03-16 | XMS | Encounter Summary ---
Demographics + + + | Address | [address] | | | [place] [address] | + + + | Home Phone | | + + + | Preferred Language | Unknown | + + + | Marital Status | | + + + | Baptism Affiliation | Unknown | + + + | Race | Unknown | + + + | Ethnic Group | Unknown | + + + Author + + + | Author | [facility] | | | and [place] | + + + | Organization | [facility] | | | and [place] [...] Team Providers + +------+ + | Care Mainspring Strip Gauger Name | Role | Phone | + [...] Description | +--------+--------+ + + + | 06/18/ | Refill | [facility] | Misha Atkinson | Medication Refill | | 2018 | | [facility] | E, DO [address] | | | | | MEDICAL CLIN[address] | [place], [place] | | | | | [address] [place], | [address] | | | | | [place] [address] | [phone] | | | | | [phone] | | | +--------+--------+ + + + [...]
--- OUTSIDE RECORDS SUMMARY | ~2019-03-16 | XMS | Encounter Summary ---
Demographics + + + | Address | [address] | | | [place] [address] | + + + | Home Phone | | + + + | Preferred Language | Unknown | + + + | Marital Status | | + + + | Confucianism Affiliation | Unknown | + + + | Race | Unknown | + + + | Ethnic Group | Unknown | + + + Author + + + | Author | [facility] | | | and [place] | + + + | Organization | [facility] | | | and [...] Team Providers + +------+ + | Care Skiver Hand Name | Role | Phone | + +------+ + | Misha Atkinson DO | PCP | | + +------+ + Encounter Details +--------+ + + + + | Date | Type | Department | Care Team | Description | +--------+ + + + + | 11/20/ | Abstract | [facility] | Misha Atkinson | | | 2019 | | [facility] | [place], [address] | | | | | MEDICAL CL[address] | [place], [place] | | | | | [address] [place], | [address] | | | | | [place] [address] | [phone] | | | | | [phone] | | | +--------+ + + + [...]
--- OUTSIDE RECORDS SUMMARY | ~2019-03-16 | XMS | Encounter Summary ---
Demographics + + + | Address | [address] | | | [place] [address] | + + + | Home Phone [...] + | Author | [facility] | | | and [place] | + + + | Organization | [facility] | | | and [place] [...] Team Providers + +------+ + | Care Optical Fabricator Name | Role | Phone | + [...] | 2018 | | [facility] | E, DO [address] | | | | | MEDICAL CLIN[address] | [place], [place] | | | | | [address] [place], | [address] | | | | | [place] [address] | [phone] | | | | | [phone] | | | +--------+--------+ + + + [...]
--- OUTSIDE RECORDS SUMMARY | ~2019-03-16 | XMS | Encounter Summary ---
Demographics + + + | Address | [address] | | | [place] [address] | + + + | Home Phone | | + + + | Preferred Language | Unknown | + + + | Marital Status | | + + + | Christianity Affiliation | Unknown | + + + | Race | Unknown | + + + | Ethnic Group | Unknown | + + + Author + + + | Author | [facility] | | | and [place] | + + + | Organization | [facility] | | | and [place] | [...] Team Providers + +------+ + | Care Test Engineering Manager Name | Role | Phone | [...] Medication Refill | | 2018 | | [facility] | CC CERTIFIED GREEN BUILDING ENGINEER | | | | | MEDICAL CLIN[address] | | | | | | [address] [place], | | | | | | [place] [address] | | | | | | [phone] | | | +--------+ + + + [...]
--- OUTSIDE RECORDS SUMMARY | ~2019-03-16 | XMS | Encounter Summary ---
Demographics + + + | Address | [address] | | | [place] [address] | + + + | Home Phone | | + + + | Preferred Language | Unknown | + + + | Marital Status | | + + + | Synagogue Affiliation | Unknown | + + + | Race | Unknown | + + + | Ethnic Group | Unknown | + + + Author + + + | Author | [facility] | | | and [place] | + + + | Organization | [facility] | | | and [...] Team Providers + +------+ + | Care Color Card Maker Name | Role | Phone | + [...] Medication Refill | | 2019 | | [facility] | [facility], [facility] [address] | | | | | MEDICAL CLIN[address] | [address] [place] | | | | | [address] [place], | [place] [address] | | | | | [place] [address] | [phone] | | | | | [phone] | | | +--------+--------+ + + + [...]
--- OUTSIDE RECORDS SUMMARY | ~2019-03-16 | XMS | Encounter Summary ---
Demographics + + + | Address | [address] | | | [place] [address] | + + + | Home Phone | | + + + | Preferred Language | Unknown | + + + | Marital Status | | + + + | Uatsdin Affiliation | Unknown | + + + | Race | Unknown | + + + | Ethnic Group | Unknown | + + + Author + + + | Author | [facility] | | | and [place] | + + + | Organization | [facility] | | | and [...] Team Providers + +------+ + | Care Resident Athletic Trainer Name | Role | Phone | + [...] | [facility] | CC SOFTWARE QA SYSTEM SPECIALIST | ([facility]) | | | | MEDICAL CLINIC [address] | | | | | | [address] [place], | | | | | | [place] [address] | | | | | | [phone] | | | +--------+ + + + [...]
--- OUTSIDE RECORDS SUMMARY | ~2019-03-16 | XMS | Encounter Summary ---
Demographics + + + | Address | [address] | | | [place] [address] | + + + | Home Phone | | + + + | Preferred Language | Unknown | + + + | Marital Status | | + + + | Sabianist Affiliation | Unknown | + + + | Race | Unknown | + + + | Ethnic Group | Unknown | + + + Author + + + | Author | [facility] | | | and [place] | + + + | Organization | [facility] | | | and [...] Team Providers + +------+ + | Care Oil Treater Name | Role | Phone | + [...] Lab Order | | 2018 | | [facility] | E, DO [address] | | | | | MEDICAL [address] | [place], [place] | | | | | [address] [place], | [address] | | | | | [place] [address] | [phone] | | | | | [phone] | | | +--------+ + + + [...]
--- OUTSIDE RECORDS SUMMARY | ~2019-03-16 | XMS | Encounter Summary ---
Demographics + + + | Address | [address] | | | [place] [address] | + + + | Home Phone | | + + + | Preferred Language | Unknown | + + + | Marital Status | | + + + | Advent Affiliation | Unknown | + + + | Race | Unknown | + + + | Ethnic Group | Unknown | + + + Author + + + | Author | [facility] | | | and [place] | + + + | Organization | [facility] | | | and [place] [...] Team Providers + +------+ + | Care Roof Bolter Operator Name | Role | Phone | [...] Description | +--------+--------+ + + + | 06/12/ | Refill | [place] [facility] | Misha Atkinson | Medication Refill | | 2018 | | [facility] | E, DO [address] | | | | | MEDICAL CLIN[address] | [place], [place] | | | | | [address] [place], | [address] | | | | | [place] [address] | [phone] | | | | | [phone] | | | +--------+--------+ + + + [...]
--- OUTSIDE RECORDS SUMMARY | ~2019-03-16 | XMS | Encounter Summary ---
Demographics + + + | Address | [address] | | | [place] [address] | + + + | Home Phone | | + + + | Preferred Language | Unknown | + + + | Marital Status | | + + + | Confucianist Affiliation | Unknown | + + + | Race | Unknown | + + + | Ethnic Group | Unknown | + + + Author + + + | Author | [facility] | | | and [place] | + + + | Organization | [facility] | | | and [place] | + + + | Address | Unknown | + + + | Phone | Unavailable | + + + Support + + +---------+ + | Name | Relationship | Address | Phone | + + +---------+ + | Spencer Reed | ECON | Unknown | | + + +---------+ + Care Team Providers + +------+ + | Care Public Space Attendant Name | Role | Phone | [...] Medication Refill | | 2018 | | [facility] | CC INSPECTOR MATERIALS AND PROCESSES | | | | | MEDICAL CLIN[address] | | | | | | [address] [place], | | | | | | [place] [address] | | | | | | [phone] | | | +--------+ + + + [...]
--- OUTSIDE RECORDS SUMMARY | ~2019-03-16 | XMS | Encounter Summary ---
Demographics + + + | Address | [address] | | | [place] [address] | + + + | Home Phone | | + + + | Preferred Language | Unknown | + + + | Marital Status | | + + + | Voodoo Affiliation | Unknown | + + + | Race | Unknown | + + + | Ethnic Group | Unknown | + + + Author + + + | Author | [facility] | | | and [place] | + + + | Organization | [facility] | | | and [place] [...] Team Providers + +------+ + | Care Supervisor Pigment Making Name | Role | Phone | + +------+ + | Misha Atkinson DO | PCP | | + +------+ + Reason for Visit + + + | Reason | Comments | + + + | Medication Refill | Rx-Pt out of medication(matthew Atkinson pt from [place]) appt | | | sched on 04-11-18 | + + + Encounter Details +--------+--------+ + + + | Date | Type | Department | Care Team | Description | +--------+--------+ + + + | 03/27/ | Refill | [facility] | Misha Atkinson | Medication Refill | | 2019 | | [facility] | E, DO [address] | (Rx-Pt out of | | | | MEDICAL CLINIC [address] | [place], [place] | medication(prev | | | | [address] [place], | [address] | Demetrio pt from | | | | [place] [address] | [phone] | paul) appt | | | | [phone] | | sched on 04-11-18) | +--------+--------+ [...]
--- OUTSIDE RECORDS SUMMARY | ~2019-03-16 | XMS | Encounter Summary ---
Demographics + + + | Address | [address] | | | [place] [address] | + + + | Home Phone | | + + + | Preferred Language | Unknown | + + + | Marital Status | | + + + | Zoroastrianism Affiliation | Unknown | + + + | Race | Unknown | + + + | Ethnic Group | Unknown | + + + Author + + + | Author | [facility] | | | and [place] | + + + | Organization | [facility] | | [...] Team Providers + +------+ + | Care Manufacturing Advisor Name | Role | Phone | + +------+ + | Misha Atiknson DO | PCP | | + +------+ [...] Medication Refill | | 2018 | | [facility] | E, DO [address] | | | | | MEDICAL CLIN[address] | [place], [place] | | | | | [address] [place], | [address] | | | | | [place] [address] | [phone] | | | | | [phone] | | | +--------+--------+ + + + [...]
--- OUTSIDE RECORDS SUMMARY | ~2019-03-16 | XMS | Encounter Summary ---
Demographics + + + | Address | [address] | | | [place] [address] | + + + | Home Phone | | + + + | Preferred Language | Unknown | + + + | Marital Status | | + + + | Mosque Affiliation | Unknown | + + + | Race | Unknown | + + + | Ethnic Group | Unknown | + + + Author + + + | Author | [facility] | | | and [place] | + + + | Organization | [facility] | | | and [place] [...] Team Providers + +------+ + | Care Rougher Machine Operator Name | Role | Phone | + +------+ + | Misha Atkinson DO | PCP | | + +------+ + Encounter Details +--------+ + + + + | Date | Type | Department | Care Team | Description | +--------+ + + + + | 04/11/ | Abstract | [place] [facility] | Susan Khan | | | 2018 | | [facility] | | | | | | MEDICAL CLIN[address] | | | | | | [address] [place], | | | | | | [place] [address] | | | | | | [phone] | | | +--------+ + + + [...]
--- OUTSIDE RECORDS SUMMARY | ~2019-03-16 | XMS | Encounter Summary ---
Demographics + + + | Address | [address] | | | [place] [address] | + + + | Home Phone | | + + + | Preferred Language | Unknown | + + + | Marital Status | | + + + | Evangelical Affiliation | Unknown | + + + | Race | Unknown | + + + | Ethnic Group | Unknown | + + + Author + + + | Author | [facility] | | | and [place] | + + + | Organization | [facility] | | | and [...] Team Providers + +------+ + | Care Java Websphere Developer Name | Role | Phone | + [...] Medication Refill | | 2018 | | [facility] | E, DO [address] | | | | | MEDICAL CLIN[address] | [place], [place] | | | | | [address] [place], | [address] | | | | | [place] [address] | [phone] | | | | | [phone] | | | +--------+--------+ + + + [...]
--- OUTSIDE RECORDS SUMMARY | ~2019-03-16 | XMS | Encounter Summary ---
Demographics + + + | Address | [address] | | | [place] [address] | + + + | Home Phone | | + + + | Preferred Language | Unknown | + + + | Marital Status | | + + + | Protestant Affiliation | Unknown | + + + | Race | Unknown | + + + | Ethnic Group | Unknown | + + + Author + + + | Author | [facility] | | | and [place] | + + + | Organization | [facility] | | [...] Team Providers + +------+ + | Care Reduction Plant Supervisor Name | Role | Phone | + [...] Lab Order | | 2018 | | [facility] | E, DO [address] | | | | | MEDICAL CLIN[address] | [place], [place] | | | | | [address] [place], | [address] | | | | | [place] [address] | [phone] | | | | | [phone] | | | +--------+ + + + [...]
--- OUTSIDE RECORDS SUMMARY | ~2019-03-16 | XMS | Clinical Summary ---
Demographics + + + | Address | [address] | | | [place] [address] | + + + | Home Phone | | + + + | Preferred Language | Unknown | + + + | Marital Status | | + + + | Pentecostalism Affiliation | Unknown | + + + | Race | Unknown | + + + | Ethnic Group | Unknown | + + + Author + + + | Author | [facility] | | | and [place] | + + + | Organization | [facility] | | | and [place] [...] Team Providers + +------+ + | Care Scratch Brusher Name | Role | Phone | + [...] | | Activ | | (VITAMIN D2) [id number] | mouth every 14 days. | capsule [...] +---------+------+ | [place] | [id number] | 03/12/19 | [phone] | | PPO [...] | 1975 | [phone] | [place] [address] | | | marium | | | 1 (Home) | | + +--------+ +--------+ + + Advance Directives + + + + + | Type | Date Recorded | Patient | Explanation | | | | Ticket Agent | | + + + + + | Power of | | | | | Insurance Risk Surveyor | | | | + + + + + | Advance | | | | | Directive | | | | + + + + +
--- OUTSIDE RECORDS SUMMARY | ~2019-03-16 | XMS | Encounter Summary ---
Demographics + + + | Address | [address] | | | [place] [address] | + + + | Home Phone | | + + + | Preferred Language | Unknown | + + + | Marital Status | | + + + | Jehovah'S Witness Affiliation | Unknown | + + + | Race | Unknown | + + + | Ethnic Group | Unknown | + + + Author + + + | Author | [facility] | | | and [place] | + + + | Organization | [facility] | | | and [place] [...] Team Providers + +------+ + | Care Medical Cost Consultant Name | Role | Phone | + [...] Uncomplicated | | 2019 | Visit | [facility] | E, DO [address] | alcohol dependence | | | | MEDICAL CLINIC [address] | [place], [place] | (HCC) (Primary Dx); | | | | [address] [place], | [address] | Controlled type 2 | | | | [place] [address] | [phone] | diabetes mellitus | | | | [phone] | | with complication, | | | [...] 2000 I/U daily along with -Take Ergocalciferol 00860 Units daily -Start Losartan 50 mg daily -Take Fish Oil 2000 mg daily -Order for Mammogram, call [facility] to schedule appointment -Schedule appointment with AUDITOR SUPERVISOR for PAP -Repeat Blood work in June [...] 2000 I/U daily along with -Take Ergocalciferol 03254 Units daily -Start Losartan 50 mg daily -Take Fish Oil 2000 mg daily -Order for Mammogram, call [facility] to schedule appointment -Schedule appointment with AUDITOR SUPERVISOR for PAP -Repeat Blood work in June 2018 - CBC -Apply Hydrocortisone cream to elbows, do not itch, use ice packs for relief of itch 60 minute visit with > 50% time spent in counseling regarding alcohol dependence, diabetes, hypertension, nicotine dependence, dermatitis, and leukocytosis. Subjective: SHELLY Shaver presents to the clinic today to re-establish care with me from [facility] kassandra, and discuss rash both elbows and [...] for prophylactic vaccination with combined | | slzazyyarf-kinyfqu-ikieunabc (DTP) vaccine | + + | Breast cancer screening Breast screening, unspecified | + + | Leukocytosis, unspecified type | + + documented in this encounter
--- OUTSIDE RECORDS SUMMARY | ~2019-03-16 | XMS | Encounter Summary ---
Demographics + + + | Address | [address] | | | [place] [address] | + + + | Home Phone | | + + + | Preferred Language | Unknown | + + + | Marital Status | | + + + | Nondenominational Affiliation | Unknown | + + + | Race | Unknown | + + + | Ethnic Group | Unknown | + + + Author + + + | Author | [facility] | | | and [place] | + + + | Organization | [facility] | | | and [...] Team Providers + +------+ + | Care Fuel Retrofitting Technician Name | Role | Phone | + +------+ + PCP | Unavailable | + +------+ + Encounter Details +--------+ + + + + | Date | Type | Department | Care Team | Description | +--------+ + + + + | 06/25/ | [facility] | [facility] | | | | 1996 | Encounter | MED CTR GENERIC OP | | | | | | CONV DEPT [address] | | | | | | [place], | | | | | | [place] [address] | | | | | | [phone] | | | +--------+ + + + [...]
--- OUTSIDE RECORDS SUMMARY | ~2019-03-16 | XMS | Encounter Summary ---
Demographics + + + | Address | [address] | | | [place] [address] | + + + | Home Phone [...] Team Providers + +------+ + | Care Ceramic Coater Name | Role | Phone | + [...] 2019 | | [facility] | PHYTOPATHOLOGY TEACHER [address] | | | | | MEDICAL CLINIC [address] | [place] [address] | | | | | [address] [place], | [phone] | | | | | [place] [address] | | | | | | [phone] | | | +--------+--------+ + + + [...]
--- OUTSIDE RECORDS SUMMARY | ~2019-03-16 | XMS | Encounter Summary ---
Demographics + + + | Address | [address] | | | [place] [address] | + + + | Home Phone | | + + + | Preferred Language | Unknown | + + + | Marital Status | | + + + | Latter-Day Affiliation | Unknown | + + + | Race | Unknown | + + + | Ethnic Group | Unknown | + + + Author + + + | Author | [facility] | | | and [place] | + + + | Organization | [facility] | | | and [place] [...] Team Providers + +------+ + | Care Hose Tender Name | Role | Phone | + +------+ + | Misha Atkinson DO | PCP | | + +------+ + Encounter Details +--------+ + + + + | Date | Type | Department | Care Team | Description | +--------+ + + + + | 11/20/ | Abstract | [place] [facility] | Misha Atkinson | | | 2019 | | [facility] | Mandy, [address] | | | | | MEDICAL CLINIC [address] | [place], [place] | | | | | [address] [place], | [address] | | | | | [place] [address] | [phone] | | | | | [phone] | | | +--------+ + + + [...]
--- OUTSIDE RECORDS SUMMARY | ~2019-03-16 | XMS | Encounter Summary ---
Demographics + + + | Address | [address] | | | [place] [address] | + + + | Home Phone | | + + + | Preferred Language | Unknown | + + + | Marital Status | | + + + | Spiritism Affiliation | Unknown | + + + | Race | Unknown | + + + | Ethnic Group | Unknown | + + + Author + + + | Author | [facility] | | | and [place] | + + + | Organization | [facility] | | | and [place] [...] Team Providers + +------+ + | Care Academic Director Name | Role | Phone | [...] | | [address] [place], | [address] | | | | | [place] [address] | [phone] | | | | | [phone] | | | +--------+--------+ + + + [...]
--- OUTSIDE RECORDS SUMMARY | ~2019-03-16 | XMS | Encounter Summary ---
Demographics + + + | Address | [address] | | | [place] [address] | + + + | Home Phone | | + + + | Preferred Language | Unknown | + + + | Marital Status | | + + + | Anabaptist Affiliation | Unknown | + + + | Race | Unknown | + + + | Ethnic Group | Unknown | + + + Author + + + | Author | [facility] | | | and [place] | + + + | Organization | [facility] | | | and [place] [...] Team Providers + +------+ + | Care Upper Cutter Name | Role | Phone | + +------+ + | iMsha Atkinson DO | PCP | | + [...] | | [address] [place], | [address] | | | | | [place] [address] | [phone] | | | | | [phone] | | | +--------+ + + + [...]
--- OUTSIDE RECORDS SUMMARY | ~2019-03-16 | XMS | Encounter Summary ---
Demographics + + + | Address | [address] | | | [place] [address] | + + + | Home Phone | | + + + | Preferred Language | Unknown | + + + | Marital Status | | + + + | Church Affiliation | Unknown | + + + | Race | Unknown | + + + | Ethnic Group | Unknown | + + + Author + + + | Author | [facility] | | | and [place] | + + + | Organization | [facility] | | | and [place] | [...] Team Providers + +------+ + | Care Drama Therapist Name | Role | Phone | + +------+ + | Misha Atkinson DO | PCP | | + +------+ + Encounter Details +--------+ + + + + | Date | Type | Department | Care Team | Description | +--------+ + + + + | 04/11/ | Abstract | [place] [facility] | Susan Khan | | | 2018 | | [facility] | | | | | | MEDICAL CLINIC [address] | | | | | | [address] [place], | | | | | | [place] [address] | | | | | | [phone] | | | +--------+ + + + [...]
--- OUTSIDE RECORDS SUMMARY | ~2019-03-16 | XMS | Encounter Summary ---
Demographics + + + | Address | [address] | | | [place] [address] | + + + | Home Phone | | + + + | Preferred Language | Unknown | + + + | Marital Status | | + + + | Jain Affiliation | Unknown | + + + | Race | Unknown | + + + | Ethnic Group | Unknown | + + + Author + + + | Author | [facility] | | | and [place] | + + + | Organization | [facility] | | | and [place] [...] Team Providers + +------+ + | Care Treater Helper Name | Role | Phone | + +------+ + | Misha tAkinson DO | PCP | | + +------+ [...] Medication Refill | | 2018 | | [facility] | E, DO [address] | | | | | MEDICAL CLINIC [address] | [place], [place] | | | | | [address] [place], | [address] | | | | | [place] [address] | [phone] | | | | | [phone] | | | +--------+--------+ + + + [...]
--- OUTSIDE RECORDS SUMMARY | ~2019-03-16 | XMS | Encounter Summary ---
Demographics + + + | Address | [address] | | | [place] [address] | + + + | Home Phone | | + + + | Preferred Language | Unknown | + + + | Marital Status | | + + + | Buddhism Affiliation | Unknown | + + + | Race | Unknown | + + + | Ethnic Group | Unknown | + + + Author + + + | Author | [facility] | | | and [place] | + + + | Organization | [facility] | | | and [...] Team Providers + +------+ + | Care Loom Fixer Supervisor Name | Role | Phone | [...] Medication Refill | | 2019 | | [facility] | [facility] [address] | | | | | MEDICAL CLINIC [address] | [address] [place] | | | | | [address] [place], | [place] [address] | | | | | [place] [address] | [phone] | | | | | [phone] | | | +--------+--------+ + + + [...]
--- OUTSIDE RECORDS SUMMARY | ~2019-03-16 | XMS | Encounter Summary ---
Demographics + + + | Address | [address] | | | [place] [address] | + + + | Home Phone | | + + + | Preferred Language | Unknown | + + + | Marital Status | | + + + | Yarsanism Affiliation | Unknown | + + + | Race | Unknown | + + + | Ethnic Group | Unknown | + + + Author + + + | Author | [facility] | | | and [place] | + + + | Organization | [facility] | | | and [...] Team Providers + +------+ + | Care Mapping Editor Name | Role | Phone | + [...] Uncomplicated | | 2019 | Visit | [facility] | E, DO [address] | alcohol dependence | | | | MEDICAL CLINIC [address] | [place], [place] | (HCC) (Primary Dx); | | | | [address] [place], | [address] | Controlled type 2 | | | | [place] [address] | [phone] | diabetes mellitus | | | | [phone] | | with complication, | | | [...] 2000 I/U daily along with -Take Ergocalciferol 97425 Units daily -Start Losartan 50 mg daily -Take Fish Oil 2000 mg daily -Order for Mammogram, call [facility] to schedule appointment -Schedule appointment with GOLD MINER BLASTING for PAP -Repeat Blood work in June [...] 2000 I/U daily along with -Take Ergocalciferol 24943 Units daily -Start Losartan 50 mg daily -Take Fish Oil 2000 mg daily -Order for Mammogram, call [facility] to schedule appointment -Schedule appointment with GOLD MINER BLASTING for PAP -Repeat Blood work in June [...] me from [facility] kassandra, and discuss rash both elbows and [...] protocol: None. Verbal Report given to: Misha tAkinson DO. CARLOS Howard CMA After obtaining consent, [...] for prophylactic vaccination with combined | | eewyxqnucq-wascqul-fgjehjgak (DTP) vaccine | + + | Breast cancer screening Breast screening, unspecified | + + | Leukocytosis, unspecified type | + + documented in this encounter
--- OUTSIDE RECORDS SUMMARY | ~2019-03-16 | XMS | Encounter Summary ---
Demographics + + + | Address | [address] | | | [place] [address] | + + + | Home Phone | | + + + | Preferred Language | Unknown | + + + | Marital Status | | + + + | Yazdanism Affiliation | Unknown | + + + | Race | Unknown | + + + | Ethnic Group | Unknown | + + + Author + + + | Author | [facility] | | | and [place] | + + + | Organization | [facility] | | | and [...] Team Providers + +------+ + | Care Dress Cap Maker Name | Role | Phone | [...] | | [address] [place], | [address] | | | | | [place] [address] | [phone] | | | | | [phone] | | | +--------+--------+ + + + [...]
--- OUTSIDE RECORDS SUMMARY | ~2019-03-16 | XMS | Encounter Summary ---
Demographics + + + | Address | [address] | | | [place] [address] | + + + | Home Phone [...] | Author | [facility] | | | and [place] | + + + | Organization | [facility] | | | [...] Team Providers + +------+ + | Care Forensic Accountant Name | Role | Phone | + [...] | | [address] [place], | [address] | | | | | [place] [address] | [phone] | | | | | [phone] | | | +--------+--------+ + + + [...]
--- OUTSIDE RECORDS SUMMARY | ~2019-03-16 | XMS | Encounter Summary ---
Demographics + + + | Address | [address] | | | [place] [address] | + + + | Home Phone [...] | Author | [facility] | | | and [place] | + + + | Organization | [facility] | | | and [...] Team Providers + +------+ + | Care Tavern Keeper Name | Role | Phone | + +------+ + | Misha Atkinson DO | PCP | | + +------+ + Encounter Details +--------+ + + + + | Date | Type | Department | Care Team | Description | +--------+ + + + + | 04/11/ | Abstract | [facility] [facility] | Susan Khan | | | 2018 | | [facility] | | | | | | MEDICAL CLINIC [address] | | | | | | [address] [place], | | | | | | [place] [address] | | | | | | [phone] | | | +--------+ + + + [...]
--- OUTSIDE RECORDS SUMMARY | ~2019-03-16 | XMS | Encounter Summary ---
Demographics + + + | Address | [address] | | | [place] [address] | + + + | Home Phone [...] + | Author | [facility] | | | and [place] | + + + | Organization | [facility] | | | and [place] [...] Team Providers + +------+ + | Care Assistant Front End Manager Name | Role | Phone | + +------+ + PCP | Unavailable | + +------+ + Encounter Details +--------+ + + + + | Date | Type | Department | Care Team | Description | +--------+ + + + + | 06/25/ | [facility] | [facility] | | | | [facility] | Encounter | MED CTR GENERIC OP | | | | | | CONV DEPT [address] | | | | | | [place], | | | | | | [place] [address] | | | | | | [phone] | | | +--------+ + + + [...]
--- OUTSIDE RECORDS SUMMARY | ~2019-03-16 | XMS | Encounter Summary ---
Demographics + + + | Address | [address] | | | [place] [address] | + + + | Home Phone | | + + + | Preferred Language | Unknown | + + + | Marital Status | | + + + | Evangelical Affiliation | Unknown | + + + | Race | Unknown | + + + | Ethnic Group | Unknown | + + + Author + + + | Author | [facility] | | | and [place] | + + + | Organization | [facility] | [...] Team Providers + +------+ + | Care Core Setter Name | Role | Phone | + [...] | | [address] [place], | [address] | | | | | [place] [address] | [phone] | | | | | [phone] | | | +--------+--------+ + + + [...]
[~2019-03-16 20:51] MED LIST changes: +ADVIL200 MG PO; +HYDROCODON-ACE1 EAC8 PO; +ONDANSETRON ODT4 MG PO; +ULTRAM50 MG PO
--- NOTE | 2019-03-17 00:30 | NUR ---
PT TO ROOM FROM ED VIA STRETCHER. PT ABLE TO AMBULATE TO BR AND BACK TO BED INDEPENDENTLY, MANOHAR WELL. GAIT STEADY. INCREASED RESPIRATIONS WITH EXERTION, OXYGEN SATS 87% ON RA AFTER AMBULATION, RR 24. PT PLACED ON CPOX AND 1L/NC. OXYGEN SATS UP TO 93%. ORIENTATION TO ROOM AND NURSE CALL LIGHT GIVEN, PT ENCOURAGED TO CALL FOR ASSISTANCE WHEN USING THE BR. SIGNIFICANT OTHER IN THE ROOM. RUE IN SLING S/P SHOULDER SURGERY 03/06. IV ABX INFUSING. IV IN LEFT AC INFILTRATED, DC'D WNL. TIP IN TACT. DIGITAL IMAGING TECHNICIAN IN TO START NEW IV. NO FURTHER QUESTIONS OR CONCERNS AT THIS TIME. CALL LIGHT IN REACH.
--- NOTE | 2019-03-17 02:25 | NUR ---
UP TO BR WITH SBA TO VOID 900 ML CL YELLOW URINE. BACK TO BED, MANOHAR WELL. PT REMOVED OXYGEN PRIOR TO AMB, OXYGEN SATS UPON RETURNING TO BED WERE 87% ON RA. BACK UP TO 93% ON 1L/NC. INCREASED RR WITH AMBULATION, PT DENIES FEELING SOB. IV ABX COMPLETE. CALL LIGHT IN REACH.
--- NOTE | 2019-03-17 03:30 | NUR ---
PT RESTING IN BED WITH EYES CLOSED. CPOX READS 95% ON 1L/NC. RR EVEN AND UNLABORED.
--- NOTE | 2019-03-17 04:30 | NUR ---
ANSWERED CALL LIGHT. SBA TO THE BATHROOM AND BACK TO BED. NO OTHER NEEDS AT THIS TIME. CALL LIGHT IN REACH.
--- NOTE | 2019-03-17 06:07 | NUR ---
PT RESTED WELL AFTER ARRIVING TO THE FLOOR. ALERT AND ORIENTED, USES CALL LIGHT APPROPRIATELY. DYSPNEA WITH EXERTION, O2 SATS DOWN TO 87-88% ON RA. 90-91% ON RA WHILE AT REST. PT CURRENTLY ON 1L/NC. CPOX. NEB TX. IV ABX. PT HAD RIGHT SHOULDER SURGERY 03/06, RIGHT ARM REMAINS IN SLING. DENIES PAIN AT THIS TIME. SIGNIFICANT OTHER IN ROOM.
--- NOTE | 2019-03-17 06:34 | NUR ---
PT UP TO BR WITH SBA. STANDING WEIGHT OBTAINED. PT BACK TO BED, MANOHAR WELL. O2 1L/NC LEFT IN PLACE FOR AMBULATION, OXYGEN SATS 95%. PT DENIES SOB. NO C/O PAIN AT THIS TIME.
--- NOTE | 2019-03-17 07:15 | NUR ---
REPORT RECIEVED FROM THELMA ALVES. PT APPEARS TO BE SLEEPING. SLING IN PLACE.
--- NOTE | 2019-03-17 08:50 | NUR ---
PT AND ASKED IF COULD ASSIST PT TO RESTROOM ON THEIR OWN. STATED THAT WOULD BE FINE LONG SHE WASNT GETTING DIZZY OR LIGHTHEADED. ADVISED TO USE CALLLIGHT IN BATHROOM IF NEED AROSE.
--- NOTE | 2019-03-17 10:28 | NUR ---
Med Rec completed
--- NOTE | 2019-03-17 10:54 | NUR ---
PATIENT UP TO BATHROOM,IND IN ROOM WITH IN ROOM. CALL LIGHT IN REACH. NO FURTHER NEEDS AT THIS TIME.
--- NOTE | 2019-03-17 11:08 | NUR ---
Certified Heart Failure Nurse Notes: Diagnosis:CHF echocardiogram pending [place] -NA at this time Weight 174LB Patient with possible diagnosis of heart failure. Has risk factors for heart failure. Current smoker. Introduced this service to patient after type of heart failure is diagnosed will contact patient. Patient encouraged to follow general heart healthy diet 2300mg NA. Had heart falure book at bedside. Given contact information and welcomed to call PRN for heart failure questions or navigation needs.
--- NOTE | 2019-03-17 12:44 | NUR ---
ADMINISTERED INSULIN AND SCHED MEDS. PT DECLINED EDUCATION ON DIABETES. UP TO RESTROOM AGAIN, VOIDING LIGHT YELLOW QS URINE.
--- NOTE | 2019-03-17 13:18 | EKG ---
[facility] [address] [facility] [place] [address] Signed Normal sinus rhythm Possible Left atrial enlargement Borderline ECG When compared with ECG of 16-MAR-2019 21:00, (Unconfirmed) Nonspecific T wave abnormality no longer evident in Inferior leads Confirmed by FLORINA TALBERT DO ([id number]) on 03/17/2019 1:17:54 PM Electronically Signed By: FLORINA TALBERT DO 03/17/19 1318 PATIENT NAME: RIVER KELLER Electrocardiogram DATE OF : 77 PHYSICIAN: FLORINA TALBERT DO REPORT #: [id number] REPORT IS CONFIDENTIAL AND NOT TO BE RELEASED WITHOUT AUTHORIZATION
--- NOTE | 2019-03-17 14:20 | NUR ---
PT RESTING IN BED, MURALI AT BS. PT ADMITTED THAT THESE PAST FEW DAYS HAVE BEEN VERY DIFFICULT, ALMOST MORE THAN SHE CAN HANDLE. PT WAS EMOTIONAL AND WAS IMPORTANT FOR HER TO FEEL COMFORTABLE SHARING HER FEELINGS WITH ME. PT DECLINED PRAYER, BUT THANKED ME FOR OFFERING. WILL CONTINUE TO FOLLOW NEEDED
--- NOTE | 2019-03-17 15:09 | NUR ---
PT SITTING IN BED, APPEARS TO HAVE BEEN CRYING. STATES SHE IS HAVING A HARD TIME WITH THE VARIOUS DIAGNOSIS'. WOOD BLOCK ARTIST IN ROOM TO DO ECHO. ADMINISTERED SOLUMEDROL.
--- NOTE | 2019-03-17 15:45 | NUR ---
SPOKE WITH PATIENT IN ROOM. PATIENT ABLE TO SPEAK IN SENTENCES, ALTHOUGH SOME SOB IS NOTABLE. PATIENT LIVES WITH . STATES SHE FEELS SAFE TO RETURN HOME AT DISCHARGE. PATIENT USES NO DME. HAS NO AMBULATION ISSUES. STATES SHE CAN AFFORD HER MEDICATIONS, FOOD AND UTILITIES. PATIENT UNDERSTANDS WHY SHE IS IN HOSPITAL AND IS AWAITING TEST RESULTS. DISCUSSED IMPORTANCE OF UNDERSTANDING MEDICATIONS AT DISCHARGE, WHY AND HOW TO TAKE AND WHAT SIDE EFFECTS ARE. SHE STATES SHE WILL HAVE NO TROUBLE GETTING TO FOLLOW UP APPT AT PCP OFFICE WHICH IS [place] OF TOWN. PATIENT HAS NO QUESTIONS AT THIS TIME. NO KNOWN BARRIERS TO DISCHARGE HOME AT THIS TIME. WILL FOLLOW NEEDED.
--- NOTE | 2019-03-17 16:52 | NUR ---
MOVED RECLINER INTO ROOM. GIVEN ICE WATER AND ICE BAG FOR FOREHEAD, STATES SHE HAS HOT FLASHES. AND FRIEND IN ROOM.
--- NOTE | 2019-03-17 19:46 | NUR ---
RECEIVED REPORT FROM DAY SHIFT RN. PATIENT IS RESTING IN BED. AT THE BEDSIDE. PATIENT DENIES ANY NEEDS. CALL LIGHT IN REACH.
--- NOTE | 2019-03-17 21:12 | NUR ---
PATIENT ASSESMENT COMPLETED. PATIENT IS RESTING IN BED. PATIENTS EVENING MEDICATIONS GIVEN PER ORDER. PATIENT RATES PAIN AT A 2/10 IN HER RIGHT SHOULDER. SCHEDULED TYLENOL GIVEN PER ORDER. PATIENT DENIES THE NEED FOR ADDITIONAL PAIN MEDICATION. PATIENT IS ON RA. PATIENT COMPLETED ACAPELLA AND IS. PATIENT DENIES ANY SOB. PATIENT HAS SLING PRESENT ON RUE. PATIENTS VITALS TAKEN AND RECORDED. INTAKE AND OUPUT RECORDED. PATIENT DENIES ANY FURTHER NEEDS. PATIENTS PRESENT. NO FURTHER NEEDS NOTED. CALL LIGHT IN REACH.
--- NOTE | 2019-03-17 23:39 | NUR ---
PATIENT IS RESTING IN BED WITH EYES CLOSED, RR 17. CALL LIGHT IN REACH. PATIENTS IS ASLEEP ON THE COUCH. CALL LIGHT IN REACH.
--- NOTE | 2019-03-18 01:55 | NUR ---
PATIENT IS RESTING IN BED WITH EYES CLOSED, RR 16. CALL LIGHT IN REACH.
--- NOTE | 2019-03-18 04:17 | NUR ---
PATIENT IS RESTING IN BED WITH EYES CLSOED, RR 17. CALL LIGHT IN REACH.
--- NOTE | 2019-03-18 04:51 | NUR ---
PATIENT RESTED WELL THROUGHOUT THE SHIFT. PATIENT IS ON A 2GM NA LIMIT DOET, TOLERATING WELL, AND NO NAUSEA NOTED. PATIENT HAS RIGHT ARM IN A SLING. BS CHECKS AND SS PER MAY. PATIENT IS ON RA. PATIENT IS INDEPENDENT IN THE ROOM. PATIENT IS SL AND IV FLUSHES WELL. PATIENT IS AAOX4 AND USES CALL LIGHT APPROPRIATEY. PATIENT USES IS AND ACAPELLA FREQUENTLY.
--- NOTE | 2019-03-18 06:45 | NUR ---
PATIENTS VITALS TAKEN AND RECORDED. INTAKE AND OUPUT RECORDED. PATIENTS MORNING MEDICATIONS GIVEN PER ORDER. PATIENT RATES PAIN IN HER RIGHT SHOULDER AT A 4/10. PATIENT GIVNE PRN PAIN MEDICATION PER ORDER. PATIENT REMAINS ON RA. IS AND ACAPELLA COMPLETED. NO NEEDS NOTED. PATIENT DENIES ANY SOB. CALL LIGHT IN REACH.
--- NOTE | 2019-03-18 07:21 | NUR ---
BEDSIDE REPORT, FROM MITA RENEE, PT HAS HAD A GOOD NIGHT, HAS BEEN ON ROOM AIR ALL CUTTER BRAKE LINING. OXYCODONE GIVEN THIS AM FOR SHOULDER PAIN FROM RECENT SURGERY.
[2019-03-18] MEDS ORDERED: PREDNISONE10 MG PO (07:51)
[2019-03-18] MEDS ORDERED: PROVENTIL HFA6.7 GM INH (07:53)
[2019-03-18] MEDS ORDERED: AZITHROMYCIN250 MG PO (07:53)
[2019-03-18] MEDS ORDERED: NICORETTE2 M1 BUCCAL (07:55)
--- NOTE | 2019-03-18 08:03 | NUR ---
PATIENT SITTING UP IN CHAIR. PATIENT'S HANDS AND FACE CLEANED. ICE WATER GIVEN. CALL LIGHT WITHIN REACH. NO OTHER NEEDS AT THIS TIME
--- NOTE | 2019-03-18 09:32 | NUR ---
PATIENT SITTING UP IN CHAIR. VISITOR AND RN IN ROOM. VITAL SIGNS AND I&O DONE. CALL LIGHT WITHIN REACH. NO OTHER NEEDS AT THIS TIME
--- NOTE | 2019-03-18 09:39 | NUR ---
DISCHARGE PACKET AND EDUCAITON PROVIDED AT THIS TIME, ON SIGNS AND SYMPTOMS SEEK MEDICAL CARE. WITH DAILY WT. FORM, PT TO FOLLOW UP THIS WEEK WITH PCP OFFICE. MEDICATION EDUCATION PROVIDED LAST DOSE NEXT DOSE. PT AND SPOUSE IN ROOM FOR EDUCATIONS. CALLED MUSTAPHA WITH R.T. TO NOTIFY OF PT TO DISCHARGE. TYESHA FROM PHARMACY IN PT ROOM TO GIVEN MEDICATION EDUCATIONS. DISCUSSED DASH DIET, SMOKING CESSATION AND DAILY WEIGHT. PT HAS NO FURTHER QUESTIONS SHE IS NOT INTERESTED IN QUITING SMOKING AT THIS TIME.
--- NOTE | 2019-03-18 09:41 | NUR ---
PATIENT REFUSED TO TAKE A SHOWER TODAY BECAUSE SHE IS GOING TO BE DISCHARGE HOME AND PREFERS TO TAKE A SHOWER AT HOME
--- NOTE | 2019-03-21 09:18 | NUR ---
CALLED AND SPOKE WITH PT REGARDING HER STAY AND HOW SHE IS DOING. PT STATES SHE DID NOT HAVE RX'S TO FILL, BUT WHILE IN HOSPITAL THE NURSES DID TELL HER WHY SHE WAS TAKING MEDS WHAT THEY WERE AND THE SIDE EFFECTS. STATES SHE HAD HER FOLLOW UP VISIT WITH HER PCP YESTERDAY AND STATED ALL IS GOOD. DENIED FURTHER QUESTIONS OR CONCERNS.
== END 2019-03-18 09:45 | disposition home or self-care (01) ==
LOC: ED 20:51 → MS 20:53
PROVIDERS: ADMIT Student in an Organized Health Care Education/Training Program
DX: I11.0 Hypertensive heart disease with heart failure (principal); I50.9 Heart failure, unspecified; J40 Bronchitis, not specified as acute or chronic; F17.210 Nicotine dependence, cigarettes, uncomplicated; J96.91 Respiratory failure, unspecified with hypoxia; E11.9 Type 2 diabetes mellitus without complications; K21.9 Gastro-esophageal reflux disease without esophagitis; F39 Unspecified mood [affective] disorder; Z88.8 Allergy status to other drugs, medicaments and biological substances; Z88.5 Allergy status to narcotic agent; Z79.84 Long term (current) use of oral hypoglycemic drugs; Z79.1 Long term (current) use of non-steroidal anti-inflammatories (NSAID); Z79.891 Long term (current) use of opiate analgesic; Z79.899 Other long term (current) drug therapy
CPT/HCPCS: 36415; 71045; 71260; 80048; 80053; 83605; 83735; 83880; 84484; 84703; 85025; 85379; 85610; 85730; 87070; 87205; 93005; 93010; 93306; 94640; 94667; 94668; 94760; 94762; 96376; 99285-25; 99406; G0378; J0456; J1815; J1940; J2930; J7060; Q9967

== ENCOUNTER 2020-02-25 06:25 | Day surgery (SDC) | payer BC ==
[~2020-02-25] VITALS: Ht 154.9 cm; Wt 79.5 kg
[~2020-02-25 06:25] MED LIST changes: +AZITHROMYCIN250 MG PO; +NICORETTE2 M1 BUCCAL; +PREDNISONE10 MG PO; +PROVENTIL HFA6.7 GM INH; +WELLBUTRIN XL300 MG PO
--- NOTE | 2020-02-25 08:26 | NUR ---
[facility]20 0826 [facility] ARRIVED IN PACU NON RESPONSIVE TO NOXIOUS STIMULI WITH OPA IN PLACE. ABD SOFT AND PASSING FLATUS. 0810 BLOOD SUGAR 127. 0823 PT REACTIVE. OPA REMOVED. AWAKENS TO VERBAL STIMULI, THEN FALLS BACK TO SLEEP.
--- NOTE | 2020-02-25 08:41 | NUR ---
PT IS BACK TO FROM PACU. SHE IS AWAKE, HAVING A CONVERSTATION, TOLERATING WATER. CALL LIGHT WITHIN REACH. NO ADDITIONAL NEEDS.
--- NOTE | 2020-02-25 10:02 | NUR ---
PT HAS MET DC CRITERIA. SHE IS GIVEN VERBAL DC INSTRUCTIONS WITH PRESENT. THEY BOTH VERBAIZE UNDERSTANDING. SHE HAS NO QUESTIONS OR CONCERNS AT THIS TIME. SHE IS TAKEN OUT TO THE CAR VIA WC, SHE IS ABLE TO TRANSFER HERSELF FROM WC TO CAR.
--- NOTE | 2020-02-25 10:45 | EKG ---
[facility] [address] [facility] [place], [place] [address] Signed Normal sinus rhythm Nonspecific ST and T wave abnormality Abnormal ECG When compared with ECG of 16-MAR-2019 21:27, No significant change was found Confirmed by FLORINA TALBERT DO ([id number]) on 02/25/2020 10:45:33 AM Electronically Signed By: FLORINA TALBERT DO 02/25/20 1045 PATIENT NAME: MILI KELLERICA BIRGIT Electrocardiogram DATE OF : 77 PHYSICIAN: FLORINA TALBERT DO REPORT #: [id number] REPORT IS CONFIDENTIAL AND NOT TO BE RELEASED WITHOUT AUTHORIZATION
--- NOTE | 2020-02-25 11:07 | OR ---
[facility] [address] [place], [place] [address] Signed DATE OF OPERATION: 02/25/2020 SURGEON: Colleen Jasso MD PREOPERATIVE DIAGNOSES: 1. Anemia. 2. Epigastric abdominal pain and nausea. 3. Gastroesophageal reflux disease. 4. Chronic diarrhea. 5. Irritable bowel syndrome. 6. Remote history of Crohn disease versus ulcerative colitis. POSTOPERATIVE DIAGNOSES: 1. Mild diffuse gastritis. 2. Tiny hiatal hernia. 3. Unremarkable colonoscopy. PROCEDURE: 1. EGD with CLOtest and biopsies of the duodenum, antrum and GE junction. 2. Colonoscopy with random colonic cold biopsies and rectum. ESTIMATED BLOOD LOSS: None. INDICATIONS: River is a 45-year-old female, asked to see me for both upper and lower endoscopy. She has been having epigastric abdominal pain associated with nausea. She has a long history of acid reflux. She talked about diarrhea most of her life, although she thinks it is worse recently. Stool studies have all been negative. She also talks about irritable bowel syndrome. There was concern whether she had Crohn disease versus ulcerative colitis after her daughter was born. She took her medication for a while afterwards, but then discontinued the medication. She said she has never had a flare in any symptoms. She has no family history of inflammatory bowel disease nor colon cancer or polyps. She told me she drank heavily in the past, but discontinued alcohol in July of 2019. She likes to smoke about half a pack of cigarettes a day. She likes soda pop as well. She has had the appendix and her gallbladder came out in the past. She is also diabetic. 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 In the office, I gave her pamphlets on both upper and lower endoscopy. We reviewed those together in detail. She understands the nature of the two tests along with the risks including, but not limited to gas bloating, crampy abdominal Electronically Signed By: COLLEEN JASSO MD 02/25/20 1107 PATIENT NAME: RIVER KELLER OPERATIVE REPORT DATE OF : 77 REPORT #: [id number] PHYSICIAN: COLLEEN JASSO MD PCP: ASHOK CAO DO REPORT IS CONFIDENTIAL AND NOT TO BE RELEASED WITHOUT AUTHORIZATION [facility] [address] [place] [id number] Signed pain, bleeding, perforation requiring surgery, and missed diagnosis. In addition, she has a very full round face, heavy neck and significant past medical history. Consequently, we asked an anesthesia provider to help us with increased monitoring sedation with propofol. She had expressed understanding and wished to proceed. PROCEDURE NOTE: River was taken into our endoscopy suite and placed in a supine semi-recumbent position. She was initially given IV sedation with propofol per our nurse sign language instructor. However, she has rather significant sleep apnea and we were not able to sedate her sufficiently enough to keep her from moving around without apnea. Consequently, she had to undergo general endotracheal tube anesthesia. After this, the adult gastroscope was introduced and advanced under direct visualization out into the third portion of the duodenum without difficulty. The duodenum and pyloric channel were unremarkable. We took a biopsy of the duodenum because of the history of chronic diarrhea. Her stomach showed very mild erythematous changes, most likely consistent with her smoking history. We went ahead and took a biopsy of the antrum for pathologic review as well as CLOtest. Upon retroflexion of scope, she has a very tiny hiatal hernia. The scope was withdrawn up through the area of GE junction, which was compliant without stricture. Very little disruption to the Z-line. We went ahead and took a biopsy on the edge of the Z-line for pathologic review. There was no Martinez's mucosa, no distal esophagitis. The middle and upper esophagus were unremarkable. After this, the gas was suctioned out and the gastroscope removed. River tolerated the upper endoscopy quite well after the general endotracheal tube anesthesia. River was rotated into the left lateral decubitus position. A digital rectal exam was performed and this was unremarkable. The adult colonoscope was introduced and advanced quite readily into the cecum itself under direct visualization without difficulty. Her prep was quite excellent. We could easily see the appendiceal orifice and the ileocecal valve. We spent several minutes trying to turn the camera into the terminal ileum without success. After this, the scope was slowly withdrawn. We took pictures throughout for photodocumentation. We took several biopsies throughout the colon for pathologic review. However, the entire colon was unremarkable. The rectum was unremarkable. We took a single biopsy of the upper middle portion of the rectum for pathologic review. Upon retroflexion of the scope, there was no additional pathology noted above the anal canal. After this, the gas was suctioned out and colonoscope removed. River tolerated the procedure quite well. RECOMMENDATIONS: I will see River back in my office in 7 to 14 days to review her results. I suspect this may be related to her irritable bowel syndrome. Electronically Signed By: COLLEEN JASSO MD 02/25/20 1107 PATIENT NAME: RIVER KELLER OPERATIVE REPORT DATE OF : 77 REPORT #: [id number] PHYSICIAN: COLLEEN JASSO MD PCP: ASHOK CAO DO REPORT IS CONFIDENTIAL AND NOT TO BE RELEASED WITHOUT AUTHORIZATION [address] [place] [address] Signed MD JENNIFER Teresa/SMILEY /[id number] cc: Ashok Cao DO Copies: ASHOK CAO DO ~ Electronically Signed By: COLLEEN JASSO MD 02/25/20 1107 PATIENT NAME: RIVER KELLER OPERATIVE REPORT DATE OF : [birth year] REPORT #: [id number] PHYSICIAN: COLLEEN JASSO MD PCP: ASHOK CAO DO REPORT IS CONFIDENTIAL AND NOT TO BE RELEASED WITHOUT AUTHORIZATION
--- NOTE | 2020-02-25 15:23 | NUR ---
PT HAS GONE TO OR, MURALI IN [place]. CONNECTED WITH HIM, ALL QUESTIONS ASKED ANSWERED. GAVE ENCOURAGEMENT AND BLESSING. WILL FOLLOW
--- NOTE | 2020-02-27 14:08 | PATH ---
[facility] [address] [facility] [place], [place] [address] Signed SPECIMEN(S): A DUODENAL BIOPSY SPECIMEN(S): B ANTRUM/PYLORUS SPECIMEN(S): C GE JUNCTION SPECIMEN(S): D RANDOM COLON BIOPSY SPECIMEN(S): E RECTUM SPECIMEN SOURCE: A. DUODENAL BIOPSY B. ANTRUM/PYLORUS C. GE JUNCTION D. RANDOM COLON BIOPSY E. RECTUM CLINICAL HISTORY: Abdominal pain, reflux, history diarrhea. Post op: Small hiatal hernia. Esophagogastroduodenoscopy, colonoscopy. MICROSCOPIC DESCRIPTION: Histologic sections of all submitted blocks are examined by light microscopy. These findings, together with the gross examination, support the pathologic diagnosis. FINAL PATHOLOGIC DIAGNOSIS: A. Duodenum, biopsy: - Benign duodenal mucosa, negative for significantly increased intraepithelial lymphocytosis and villous blunting. B. Antrum/pylorus, biopsy: - Mild chemical/reactive gastropathy. - Negative for intestinal metaplasia. - Negative for Helicobacter organisms on routine stain. C. GE junction, biopsy: - Squamocolumnar mucosa with minimal reflux changes. - Negative for intestinal metaplasia and dysplasia. D. Random colon, biopsy: - Benign colonic mucosa. - Negative for acute inflammation, granulomas, and microscopic colitis. E. Rectum, biopsy: - Benign colonic mucosa. - Negative for acute inflammation, granulomas, and microscopic colitis. DDF:cml:C2NR GROSS DESCRIPTION: PATIENT NAME: MILI REEDBONIFACIO ALCANTARE PATHOLOGY DATE OF : 77 REPORT #: [id number] PHYSICIAN: LUIS EDUARDO MARIO PCP: CALOS CAO DO REPORT IS CONFIDENTIAL AND NOT TO BE RELEASED WITHOUT AUTHORIZATION [facility] [address] [place], [place] [address] Signed Five specimens are received in five containers, labeled "River Reed." A. The specimen, labeled "River Reed, #1," and designated on the requisition "duodenal biopsy," is received in formalin and consists of one tapia soft tissue fragment that measures 0.4 cm in greatest dimension. The specimen is entirely submitted in cassette (A1). B. The specimen, labeled "River Reed, #2," and designated on the requisition "antrum/pylorus," is received in formalin and consists of one tapia soft tissue fragment that measures 0.3 cm in greatest dimension. The specimen is entirely submitted in cassette (B1). C. The specimen, labeled "River Reed, #3," and designated on the requisition "GE junction," is received in formalin and consists of one pink-tapia soft tissue fragment that measures 0.3 cm in greatest dimension. The specimen is entirely submitted in cassette (C1). D. The specimen, labeled "River Reed, #4," and designated on the requisition "random colon biopsy," is received in formalin and consists of four tapia soft tissue fragments that measure 0.3-0.5 cm in greatest dimension. The specimen is entirely submitted in cassette (D1). E. The specimen, labeled "River Reed, #5," and designated on the requisition "rectum," is received in formalin and consists of one tapia soft tissue fragment that measures 0.4 cm in greatest dimension. The specimen is entirely submitted in cassette (E1). FB (under the direct supervision of a pathologist) The Gross Description was prepared using a voice recognition system. The report was reviewed for accuracy; however, sound-alike word errors, addition and/or deletions may occur. If there is any question about this report, please contact Client Services. PERFORMING LABORATORY: The technical component was performed by [employer] [address] (Appliance Tester: Adriana Bradley MD; CLIA# [id number]). Professional interpretation was performed by [facility], [address] [place] [address] [place], [place] [address] (CLIA# [id number]). Diagnostician: George Fay DO Pathologist Electronically Signed 02/27/2020 Copies: PATIENT NAME: RIVER REED PATHOLOGY DATE OF : 77 REPORT #: [id number] PHYSICIAN: LUIS EDUARDO MARIO PCP: CALOS CAO DO REPORT IS CONFIDENTIAL AND NOT TO BE RELEASED WITHOUT AUTHORIZATION [facility] [address] [place], [place] [address] Signed ~ PATIENT NAME: RIVER REED PATHOLOGY DATE OF : 77 REPORT #: [id number] PHYSICIAN: LUIS EDUARDO PATHOLOGY PCP: CALOS CAO DO REPORT IS CONFIDENTIAL AND NOT TO BE RELEASED WITHOUT AUTHORIZATION
== END 2020-02-25 09:50 | disposition home or self-care (01) ==
LOC: OPS 06:25 → DS 06:25 → OPS 06:45
PROVIDERS: ATTEND Colon & Rectal Surgery
PROC: 0DB48ZX Excision of Esophagogastric Junction, Via Natural or Artificial Opening Endoscopic, Diagnostic (ICD-10-PCS; 2020-02-25)
PROC: 0DBP8ZX Excision of Rectum, Via Natural or Artificial Opening Endoscopic, Diagnostic (ICD-10-PCS; 2020-02-25)
PROC: 0DBE8ZX Excision of Large Intestine, Via Natural or Artificial Opening Endoscopic, Diagnostic (ICD-10-PCS; 2020-02-25)
PROC: 0DB98ZX Excision of Duodenum, Via Natural or Artificial Opening Endoscopic, Diagnostic (ICD-10-PCS; principal; 2020-02-25 06:45)
PROC: 0DB78ZX Excision of Stomach, Pylorus, Via Natural or Artificial Opening Endoscopic, Diagnostic (ICD-10-PCS; 2020-02-25 06:45)
DX: K29.70 Gastritis, unspecified, without bleeding (principal); K31.9 Disease of stomach and duodenum, unspecified; K44.9 Diaphragmatic hernia without obstruction or gangrene; K21.9 Gastro-esophageal reflux disease without esophagitis; I10 Essential (primary) hypertension; E11.9 Type 2 diabetes mellitus without complications; J44.9 Chronic obstructive pulmonary disease, unspecified; E78.00 Pure hypercholesterolemia, unspecified; F32.9 Major depressive disorder, single episode, unspecified; K58.0 Irritable bowel syndrome with diarrhea; F41.9 Anxiety disorder, unspecified; E55.9 Vitamin D deficiency, unspecified; F17.210 Nicotine dependence, cigarettes, uncomplicated; Z90.49 Acquired absence of other specified parts of digestive tract; Z79.84 Long term (current) use of oral hypoglycemic drugs; Z79.899 Other long term (current) drug therapy; Z97.5 Presence of (intrauterine) contraceptive device; Z88.5 Allergy status to narcotic agent; Z91.041 Radiographic dye allergy status
CPT/HCPCS: 36415; 80048; 84703; 85025; 86677; 93005; 93010; J1100; J2370; J2405; J2550; J2704; J3010; J7121

== ENCOUNTER 2021-08-04 05:40 | Day surgery (SDC) | payer BC ==
[~2021-08-04] VITALS: Ht 154.9 cm; Wt 78.1 kg
[~2021-08-04 05:40] MED LIST changes: +CARVEDILOL25 MG PO; +IRON325 M1 PO; +TRAZODONE HCL50 MG PO; +TRIAMTERENE-HC1 EAC3 PO; +VARENICLINE TART1 MG PO; +VITAMIN C1000 MG PO; +VITAMIN D31250 MC1 PO
--- NOTE | 2021-08-04 09:32 | NUR ---
08/04/21 0932 Louise Lion 0917- PT ARRIVES TO PACU AROUSABLE TO STIMULI. PT OPENS HER EYES BUT DOES NOT VERBALLY RESPOND. PT FALLS TO SLEEP WHEN NOT BEING STIMULATED. PT TACHYPNEIC. OXYGEN SAT HIGH 90'S TO 100% ON 6L VIA MASK. PT HAS HX OF ST DEPRESSION. NEELIMA AND AWARE.
--- NOTE | 2021-08-04 10:02 | NUR ---
0955PATIENT REPORT RECIEVED FROM THELMA CHAWLA. PATIENT IS ALERT AND ORIENTED. PATIENT OXYGEN WAS TITRATED DOWN TO ROOM AIR. OXYGEN SATURATIONS ARE ABOVE 95%. BREATHING EQUAL AND UNLABORED. SURGICAL SITE HAS SMALL AMOUNT OF DRAINAGE. RED DRAINAGE. NO DRAINAGE ON HOMA PADS. IVF INFUSING. PAIN IS AT A 3/10 CRAMPING. NO QUESTIONS AT THIS TIME. AT BEDSIDE. CALL LIGHT WITHIN REACH.
--- NOTE | 2021-08-04 10:44 | NUR ---
PT TAKEN TO OR, CONNECTED WITH MURALI. HE WILL REMAIN, ENCOURAGEMENT GIVEN. WILL FOLLOW
--- NOTE | 2021-08-04 10:55 | NUR ---
PATIENT ASSESSMENT COMPLETE. PATIENT IS ALERT AND ORIENTED. BREATHING EQUAL AND UNLABORED. VITAL SIGNS WNL. PATIENT WAS ABLE TO VOID. DRINK WATER AND EAT CRACKERS. PATIENT COMPLAINS OF 3/10 PAIN AT SURGICAL SITE. DENIES NAUSEA. PATIENT CRITERIA WAS MET. PATIENT WAS GIVEN DISCHARGE INSTRUCTION AND UNDERSTOOD. NO QUESTIONS. IV WAS D/C'D WNL. PATIENT WAS WHEELED OUT OF FACILTY TO PRIVATE AUTO WITH .
--- NOTE | 2021-08-05 10:24 | OR ---
[facility] [address] [place] [place], [place] [address] Signed DATE OF OPERATION: 08/04/2021 SURGEON: Brandon Muñoz MD PREOPERATIVE DIAGNOSIS: Submucous fibroid and abnormal uterine bleeding. POSTOPERATIVE DIAGNOSIS: Submucous fibroid and abnormal uterine bleeding. PROCEDURE: Total laparoscopic hysterectomy with bilateral salpingectomy and cystoscopy. LIFT BUILDER WHOLE: Talon Spangler D.O. ANESTHESIA: General. ESTIMATED BLOOD LOSS: 25 mL. SPECIMENS: Uterus and both fallopian tubes. DRAINS: Skinner to bladder. PACKING: None. FINDINGS: Slightly enlarged soft fibroid uterus. Anterior cul-de-sac was free of any endometriosis or adhesions. The posterior cul-de-sac was free of any endometriosis or adhesions. The left tube was normal in length and normal-appearing fimbriated end. There were two filmy adhesions from the tube to the ovary. The left ovary was normal size and shape without any evidence or other adhesions. The right tube was normal in length with normal-appearing fimbriated end and no adhesions. Right ovary is normal size and shape without any evidence of endometriosis or adhesions. Rest of the pelvis was free of any masses or adhesions. Electronically Signed By: BRANDON MUÑOZ MD 08/05/21 [facility] PATIENT NAME: RIVER KELLER OPERATIVE REPORT DATE OF : 77 REPORT #: [id number] PHYSICIAN: BRANDON MUÑOZ MD PCP: ASHOK CAO DO REPORT IS CONFIDENTIAL AND NOT TO BE RELEASED WITHOUT AUTHORIZATION [facility] [address] [place], [place] [address] Signed DESCRIPTION OF PROCEDURE: The patient was brought to the operating room, placed in supine position. After adequate general anesthesia was obtained, she was placed in the dorsal lithotomy position, prepped and draped in usual sterile fashion. Skinner catheter was placed in the bladder. Weighted speculum placed in the vagina. The anterior lip of the cervix was grasped with an Allis clamp. The cervix was serially dilated and then the [employer] uterine manipulator was inserted through the cervix in the fundus of the uterus. The balloon was filled with sterile water and the Allis clamp removed. The cervical cap was slid up and placed around the cervix and the vaginal cap slid up against the cervical cap and tightened in place to hold the cervical cap against the cervix. Weighted speculum was removed. Attention was then drawn to the abdomen. A small infraumbilical skin incision was made with a scalpel after injecting the area with local anesthetic. The subcutaneous tissue was dissected with Metzenbaum scissors and the fascia identified, grasped with hemostats, elevated, nicked with Metzenbaum scissors and extended in transverse fashion using Metzenbaum scissors. Retention stitches of 0-Vicryl suture placed above and below the incision. The abdominal musculature and peritoneum were bluntly opened with finger. An S retractor was inserted into the incision and the Maribell cannula and sleeve entered the abdomen under direct visualization. The balloon was filled with air and then the outer sleeve slid down touching the skin and the retention stitches attached to the outer sleeve. Trocar was removed and laparoscope with video attachment entered the abdomen under direct visualization. Carbon dioxide was used as distending medium. On the left side just below the level of the umbilicus approximately 10 cm lateral to the midline abdominal wall was transilluminated to avoid any vessels, the area injected with local anesthesia and a small skin incision made with a scalpel. A bladed 5-mm trocar and sleeve entered the abdomen under direct visualization. Trocar was removed and the sleeve balloon filled with air. A blunt grasper was inserted through this incision on the right side again just below the level of the umbilicus and approximately 10 cm lateral to the midline, the abdominal wall was transilluminated. The area injected with local anesthetic and then a skin incision made with a scalpel. On this side, Veress needle with expandable sleeve was placed into the abdomen under direct visualization. The Veress needle was removed and the expanding trocar and sleeve were inserted through the expandable sleeve. Under direct visualization, the trocar was removed. The blunt grasper inserted through this side. The above findings were noted and confirmed. At this point, the LigaSure bipolar [place] forceps were placed in the field were used for the dissection. The two fallopian tubes were removed by cauterizing the mesosalpinx along the length of the tube and then on the proximal portion of the tube, cauterizing and cutting across the tube. The two fallopian tubes were removed through the lateral port. The utero-ovarian ligaments were then cauterized on either side and they were cauterized in several places on either side and the utero-ovarian ligament was cut. On Electronically Signed By: BRANDON MUÑOZ MD 08/05/21 1024 PATIENT NAME: RIVER KELLER OPERATIVE REPORT DATE OF : 77 REPORT #: [id number] PHYSICIAN: BRANDON MUÑOZ MD PCP: ASHOK CAO DO REPORT IS CONFIDENTIAL AND NOT TO BE RELEASED WITHOUT AUTHORIZATION [address] [address] Signed the left side, the round ligament was cauterized and cut. The upper pedicle cauterized and cut and then the anterior and posterior leaves of the broad ligament were individually cauterized and cut down the length of the broad ligament towards the cervical cap and then upon reaching the cervical cap extended to the midline right at the edge of the cervical cap. This exposed the uterine vessels, which were cauterized in several places and cut again just inside the cervical cap. Tissue was taken down to the vaginal wall. The right side was then done in a similar fashion, cauterizing the round ligament in several places and cutting the round ligament, cauterizing and cutting the upper portion of broad ligament and individually cauterizing and cutting the anterior and posterior leaves of the broad ligament down the side and connecting with previous dissection. The exposed uterine vessels were cauterized in several places and cut again just inside the cervical cap with the vaginal wall exposed and vessels all cauterized in the area. The Sonicision instrument was brought in and the posterior cul-de-sac entered at the groove of the cervical cap and the vaginal wall opened in the groove of the cervical cap from posterior to anterior on the left side and then posterior to anterior on the right side. This removed the cervix and uterus from the vagina. The uterus was gently removed through the cuff and then a sponge filled glove placed in the vagina, so the abdomen could be re-insufflated. The pelvis was irrigated, suctioned, and superficial bleeding spots cauterized with the LigaSure. When good hemostasis was obtained, the cuff was closed using delayed absorbable barbed suture using the EndoStitch instrument. This was done starting at the right uterosacral ligament and passing the needle through the posterior edge of the incision at the angle and then placing the suture through the loop at the end of the barbed suture. The needle was then placed through the anterior edge of the vaginal wall and tightened. The closure was continued from the right uterosacral ligament to the left uterosacral ligament individually incorporating the posterior edge and then the anterior edge. There was only a narrow area between the vaginal wall and the rectum, so care was taken near the edge of the tissue to avoid the rectum and on the top care was taken to avoid the bladder. Once reaching the left uterosacral ligament, the stitch was taken back through the combined cuff to the midline and then the suture cut with laparoscopic scissors. The pelvis was re-irrigated, suctioned, and examined. There was the raw area, no active bleeding, but it was decided to spray the raw area with Tisseel and after this was done, good hemostasis was noted throughout. The gas was allowed to escape. Pressure lowered and again good hemostasis was noted. All instruments were removed from the abdomen. The gas allowed to escape and all sleeves removed. The infraumbilical fascial incision was closed using running stitch of 0-Vicryl suture. The two retention stitches were tied together for further support. The three skin incisions were closed using subcuticular stitches of 4-0 Vicryl suture. Electronically Signed By: BRANDON MUÑOZ MD 08/05/21 1024 PATIENT NAME: RIVER KELLER OPERATIVE REPORT DATE OF : 77 REPORT #: [id number] PHYSICIAN: BRANDON MUÑOZ MD PCP: ASHOK CAO DO REPORT IS CONFIDENTIAL AND NOT TO BE RELEASED WITHOUT AUTHORIZATION [address] [address] Signed The sponge filled glove was removed. A rectal exam done and confirmed no stitches in the rectum. Skinner catheter was removed and cystoscopy performed. A 70-degree cystoscope was prepared and placed in the urethral opening and was placed through the urethra into the bladder, while using sterile water as distending medium. The bladder was inspected, the dome on both sides showed no evidence of trauma, defects, or sutures. Both ureteral orifices were seen and both had good jets of urine. The cystoscope was removed. The bladder drained and then the cystoscope sleeve removed. The Skinner catheter was placed back into the bladder. The patient tolerated the procedure well, went to the recovery room in good condition. The sponge, needle, and instrument count correct at the end of the procedure. Brandon Muñoz MD MJB/MODL /[id number] cc: Ashok Cao DO Copies: ASHOK CAO DO ~ Electronically Signed By: BRANDON MUÑOZ MD 08/05/21 1024 PATIENT NAME: RIVER KELLER OPERATIVE REPORT DATE OF : 77 REPORT #: [id number] PHYSICIAN: BRANDON MUÑOZ MD PCP: ASHOK CAO DO REPORT IS CONFIDENTIAL AND NOT TO BE RELEASED WITHOUT AUTHORIZATION
--- NOTE | 2021-08-05 15:25 | PATH ---
[facility] [address] [place], [place] [address] Signed SPECIMEN(S): A UTERUS, CERVIX, BILATERAL TUBES SPECIMEN SOURCE: A. UTERUS, CERVIX, BILATERAL TUBES CLINICAL HISTORY: Abnormal uterine bleeding; submucous leiomyoma of uterus. TLH, BS, cystoscopy. FINAL PATHOLOGIC DIAGNOSIS: Uterus, cervix, and bilateral tubes: - Benign myometrial leiomyoma. - Benign endometrium, benign proliferative endometrium, negative for hyperplasia or atypia. - Benign endocervix and ectocervix. - Benign bilateral oviducts. JVR:[facility]:C2NR MICROSCOPIC EXAMINATION: Histologic sections of all submitted blocks are examined by light microscopy. These findings, together with the gross examination, support the pathologic diagnosis. GROSS DESCRIPTION: The specimen, labeled "JESÚS, A," and designated on the requisition "bilateral tubes, cervix, uterus," is received in formalin and consists of a previously-opened uterus (148 gram, 7.5 cm superior to inferior, 7.5 cm cornu to cornu, 5.3 cm anterior posterior), attached cervix (3.0 x 5.5 cm) with a tapia to hemorrhagic cervical mucosa, and two detached and undesignated fimbriated fallopian tube segments (5.2 cm in length and ranging in diameter from 0.6-1.1 cm, and 5.1 cm in length and ranging in diameter from 0.6-1.0 cm). One fallopian tube segment is arbitrarily inked blue. Both fallopian tube segments are brown-tapia and are sectioned to reveal a grossly unremarkable cut surface. The fimbriae are entirely submitted. The uterine serosa is pink-tapia and smooth. The specimen is further sectioned to reveal a pink-tapia to hemorrhagic endocervix (endocervical canal: 3.5 cm in length x 1.5 cm in diameter), and endometrial cavity (5.0 cm superior to inferior x 4.0 cm cornu to cornu) with hemorrhagic endometrial lining that measures up to 0.1 cm in thickness. The myometrium is pink-tapia, trabeculated with one PATIENT NAME: RIVER KELLER PATHOLOGY DATE OF : 77 REPORT #: [id number] PHYSICIAN: LUIS EDUARDO MARIO PCP: CALOS CAO DO REPORT IS CONFIDENTIAL AND NOT TO BE RELEASED WITHOUT AUTHORIZATION [facility] [address] [place], [place] [address] Signed white-tapia, well-circumscribed recently incised whorled nodule (2.5 cm in greatest dimension). Speech Language Pathologist Prn sections are submitted as follows: (A1-A2) Fallopian tubes (A3) Endomyometrium (A4) Cervix (A5) Nodule AC (under the direct supervision of a pathologist) The Gross Description was prepared using a voice recognition system. The report was reviewed for accuracy; however, sound-alike word errors, addition and/or deletions may occur. If there is any question about this report, please contact Client Services. PERFORMING LABORATORY: The technical component was performed by [facility], [address] [place] [id number] (CLIA# [id number]). Professional interpretation was performed by [facility], [address] [place] [id number] (CLIA#: [id number]). Diagnostician: Prosper Carrasco MD Pathologist Electronically Signed 08/05/2021 Copies: ~ PATIENT NAME: MILI KELLERICA BIRGIT PATHOLOGY DATE OF : 77 REPORT #: [id number] PHYSICIAN: LUIS EDUARDO MARIO PCP: CALOS CAO DO REPORT IS CONFIDENTIAL AND NOT TO BE RELEASED WITHOUT AUTHORIZATION
== END 2021-08-04 11:00 | disposition home or self-care (01) ==
LOC: DS 05:40 → OPS 05:40 → DS 07:00 → OPS 07:00
PROVIDERS: ATTEND General Practice
PROC: 0UT94ZZ Resection of Uterus, Percutaneous Endoscopic Approach (ICD-10-PCS; principal; 2021-08-04 07:00)
PROC: 0UT74ZZ Resection of Bilateral Fallopian Tubes, Percutaneous Endoscopic Approach (ICD-10-PCS; 2021-08-04 07:00)
DX: D25.0 Submucous leiomyoma of uterus (principal); N93.9 Abnormal uterine and vaginal bleeding, unspecified; I10 Essential (primary) hypertension; E11.9 Type 2 diabetes mellitus without complications; Z79.84 Long term (current) use of oral hypoglycemic drugs; E78.00 Pure hypercholesterolemia, unspecified; K21.9 Gastro-esophageal reflux disease without esophagitis; J44.9 Chronic obstructive pulmonary disease, unspecified; F17.210 Nicotine dependence, cigarettes, uncomplicated; Z88.5 Allergy status to narcotic agent
CPT/HCPCS: J0131; J0690; J1100; J1644; J1885; J2001; J2250; J2405; J2704; J7121

== ENCOUNTER 2022-06-12 12:13 | Emergency (ER) | payer BC ==
[~2022-06-12] VITALS: Ht 154.9 cm; Wt 78.0 kg
== END 2022-06-12 14:55 | disposition home or self-care (01) ==
LOC: ED 12:13
DX: R10.9 Unspecified abdominal pain (principal); F17.200 Nicotine dependence, unspecified, uncomplicated; Z88.5 Allergy status to narcotic agent; Z88.8 Allergy status to other drugs, medicaments and biological substances; Z79.899 Other long term (current) drug therapy; Z79.84 Long term (current) use of oral hypoglycemic drugs
CPT/HCPCS: 36415; 74174; 80053; 81001; 85025; 99284-25; Q9967

== ENCOUNTER 2023-11-08 21:40 | Emergency (ER) | payer BC ==
[~2023-11-08] VITALS: Ht 154.9 cm; Wt 70.5 kg
[~2023-11-08 21:40] MED LIST changes: +AMLODIPINE BESYL5 MG PO; +CLOPIDOGREL75 MG PO; +DULOXETINE HCL30 MG PO; +DULOXETINE HCL60 MG PO
[2023-11-08] MEDS ORDERED: ATORVASTATIN CA80 MG PO (22:01)
[2023-11-08] MEDS ORDERED: TRAMADOL HCL50 MG PO (22:02)
[2023-11-08] MEDS ORDERED: LOSARTAN POTASS50 MG PO (22:02)
[2023-11-08] MEDS ORDERED: SODIUM CHLORI1000 M2 PO (22:02)
[2023-11-08] MEDS ORDERED: CARVEDILOL ER80 MG PO (22:02)
[2023-11-08] MEDS ORDERED: VENLAFAXINE HCL75 M1 PO (22:03)
[2023-11-08 22:09] LABS: EOSINOPHILS 1.8 % (0-6); HEMATOCRIT 37.9 % (35.0-50.0); HEMOGLOBIN 13.3 g/dL (12.0-18.0); LYMPHOCYTES 20.5 % (24-44); MCH 29.3 (27-36); MCV 83.6 fl (81-99); NEUTROPHILS 68.7 % (39-80); PLATELET COUNT 566 K/uL (140-440); RBC 4.53 M/ul (4.3-5.7); RDW 14.9 (10.5-15.0)
[2023-11-08] MEDS ORDERED: hydrALAZINE HCL 20 MG/ML VIAL IV ONE (22:15)
[2023-11-08] MEDS ORDERED: LACTATED RINGER'S 1,000 ML IV ONE (22:15)
[2023-11-08] MEDS ORDERED: FAMOTIDINE 20 MG/ 2 ML VIAL IV ONE (22:15)
[2023-11-08] MEDS ORDERED: ondansetron HCL 4 MG/2 ML VIAL IV ONE (22:15)
[2023-11-08 22:31] LABS: ALBUMIN 3.9 g/dL (3.4-5.0); ALBUMIN/GLOBULIN RATIO 1.05 (1.1-2.4); BILIRUBIN, TOTAL 0.4 ng/dL (0.2-1.0); BUN/CREATININE RATIO 8.41 (6.0-28.6); CALCIUM 9.4 mg/dL (8.5-10.1); CREATININE, SERUM 1.07 mg/dL (0.55-1.02); MAGNESIUM 1.4 mg/dL (1.8-2.4); PROTEIN, TOTAL 7.6 g/dL (6.4-8.2)
[2023-11-08] MEDS ORDERED: MAGNESIUM OXIDE 400 MG TABLET PO ONE (23:00)
[2023-11-08] MEDS ORDERED: POTASSIUM CHLORIDE 10 MEQ TABCR PO ONE ×2 (23:00→23:45)
[2023-11-08] MEDS ORDERED: ONDANSETRON 4 MG HOME.PACK SL ONE (23:45)
[2023-11-08] MEDS ORDERED: ONDANSETRON ODT4 MG PO (23:48)
[2023-11-08] MEDS ORDERED: K-TAB ER20 MEQ PO (23:48)
[2023-11-08] MEDS ORDERED: MAGNESIUM OXID400 M1 PO (23:48)
[2023-11-09] VITALS: BP 157/83
--- NOTE | 2023-11-09 14:52 | EKG ---
[facility] [address] [facility] [place] [address] Signed Normal sinus rhythm Nonspecific T wave abnormality Abnormal ECG When compared with ECG of 28-JUL-2021 13:35, Inverted T waves have replaced nonspecific T wave abnormality in Inferior leads Nonspecific T wave abnormality, worse in Lateral leads Confirmed by Noemi Rondon MD () on 11/09/2023 2:52:26 PM Electronically Signed By: NOEMI RONDON MD 11/09/23 1452 PATIENT NAME: RIVER KELLER Electrocardiogram DATE OF : 77 PHYSICIAN: NOEMI RONDON MD REPORT #: [id number] REPORT IS CONFIDENTIAL AND NOT TO BE RELEASED WITHOUT AUTHORIZATION
== END 2023-11-09 | disposition home or self-care (01) ==
LOC: ED 21:40
PROVIDERS: Internal Medicine
DX: B34.9 Viral infection, unspecified (principal); E86.0 Dehydration; E87.6 Hypokalemia; E83.42 Hypomagnesemia; E11.9 Type 2 diabetes mellitus without complications; I10 Essential (primary) hypertension; F17.200 Nicotine dependence, unspecified, uncomplicated; Z88.5 Allergy status to narcotic agent; Z91.048 Other nonmedicinal substance allergy status; Z79.899 Other long term (current) drug therapy
CPT/HCPCS: 36415; 71045; 80053; 83735; 83880; 84484; 85025; 93005; 93010; 96361; 96374; 96375; 99284-25; A9270; J0360; J2405; J7121; U0002

== ENCOUNTER 2024-02-20 09:44 | Emergency (ER) | payer BC ==
[~2024-02-20] VITALS: Ht 154.9 cm; Wt 69.3 kg
[~2024-02-20 09:44] MED LIST changes: +ATORVASTATIN CA80 MG PO; +CARVEDILOL ER80 MG PO; +K-TAB ER20 MEQ PO; +LOSARTAN POTASS50 MG PO; +MAGNESIUM OXID400 M1 PO; +SODIUM CHLORI1000 M2 PO; +TRAMADOL HCL50 MG PO; +VENLAFAXINE HCL75 M1 PO
[2024-02-20] MEDS ORDERED: ondansetron HCL 4 MG/2 ML VIAL ONE (09:56)
[2024-02-20] MEDS ORDERED: ondansetron HCL 4 MG/2 ML VIAL IV ONE ×3 (10:00→11:30)
[2024-02-20] MEDS ORDERED: ASPIRIN 325 MG TAB PO ONE (10:00)
[2024-02-20 10:07] LABS: BASOPHILS 0.4 % (0-2); EOSINOPHILS 1.8 % (0-6); HEMATOCRIT 43.3 % (35.0-50.0); HEMOGLOBIN 14.5 g/dL (12.0-18.0); LYMPHOCYTES 12.8 % (24-44); MCH 28.9 (27-36); MCHC 33.5 g/dl (30-36); MCV 86.1 fl (81-99); MONOCYTES 4.7 % (0-12); NEUTROPHILS 80.3 % (39-80); PLATELET COUNT 478 K/uL (140-440); RBC 5.03 M/ul (4.3-5.7); RDW 15.2 (10.5-15.0)
[2024-02-20 10:17] LABS: INR 0.94 (0.80-1.30); PROTIME 11.9 Sec (11.2-14.2)
[2024-02-20 10:26] LABS: ALBUMIN 4.5 g/dL (3.4-5.0); ALBUMIN/GLOBULIN RATIO 1.22 (1.1-2.4); ANION GAP 14.3 (7-21); BILIRUBIN, TOTAL 0.6 ng/dL (0.2-1.0); BUN/CREATININE RATIO 10.34 (6.0-28.6); CALCIUM 10.2 mg/dL (8.5-10.1); CREATININE, SERUM 1.16 mg/dL (0.55-1.02); MAGNESIUM 1.5 mg/dL (1.8-2.4); POTASSIUM 3.3 mmol/L (3.5-5.1); PROTEIN, TOTAL 8.2 g/dL (6.4-8.2)
[2024-02-20] MEDS ORDERED: LORazepam 2 MG/ML VIAL IV ONE (11:15)
[2024-02-20] MEDS ORDERED: ONDANSETRON ODT4 MG PO (12:36)
[2024-02-20 12:37] VITALS: BP 146/76
--- NOTE | 2024-02-20 22:52 | EKG ---
[facility] [address] [facility] [place] [address] Signed Normal sinus rhythm Normal ECG When compared with ECG of 08-NOV-2023 22:21, No significant change was found Confirmed by Noemi Rondon MD () on 02/20/2024 10:52:31 PM Electronically Signed By: NOEMI RONDON MD 02/20/24 2252 PATIENT NAME: RIVER KELLER Electrocardiogram DATE OF : 77 PHYSICIAN: NOEMI RONDON MD REPORT #: [id number] REPORT IS CONFIDENTIAL AND NOT TO BE RELEASED WITHOUT AUTHORIZATION
== END 2024-02-20 12:43 | disposition home or self-care (01) ==
LOC: ED 09:44
PROVIDERS: Emergency Medicine
DX: R11.10 Vomiting, unspecified (principal); R07.89 Other chest pain; E11.9 Type 2 diabetes mellitus without complications; I10 Essential (primary) hypertension; F17.200 Nicotine dependence, unspecified, uncomplicated; Z95.820 Peripheral vascular angioplasty status with implants and grafts; Z88.5 Allergy status to narcotic agent; Z91.041 Radiographic dye allergy status; Z79.01 Long term (current) use of anticoagulants; Z79.84 Long term (current) use of oral hypoglycemic drugs; Z79.899 Other long term (current) drug therapy
CPT/HCPCS: 36415; 71045; 71275; 74174; 80053; 83690; 83735; 84484; 85025; 85379; 85610; 93005; 93010; 99285-25; J2060; J2405; Q9967